=== PATIENT | female | born 1965 | race Caucasian/White ===

== ENCOUNTER 2018-10-16 11:53 | Outpatient (REF) | payer MEDICAID, SELFPAY ==
--- NOTE | 2018-10-16 11:00 | PAPFT_PTH ---
PATIENT: Carri Fermin LOC: [facility] U#:[id number] AGE/SX: 53/F ROOM: RE10/16/[address]: MICHELLE Rivas : 1965 BED: DIS: 10/16/2018 SPEC #: [id number] RECD: 10/16/18 17:56 STATUS: ARNALDO REBhakti #: [id number] YAMILKA: 10/16/18 11:[address]: Hannah Lemus DEPT: [facility] Cytology RECD BY: Ayaka Vital ENTERED: 10/16/18 17:56 SP TYPE: PAPFT OTHR DR: Asa Goldman MD Tissues: 1 - CX/ENDOCX FOR PAP SMEARS Procedures: PAP THIN PREP/UVM Screening HPV DNA PROBE Comments: [id number]
== END 2018-10-16 12:13 ==
LOC: LBN 11:53
PROVIDERS: PCP Family Medicine; Visit Provider Nurse Practitioner Family
DX: Z12.4 Encounter for screening for malignant neoplasm of cervix (principal); Z11.51 Encounter for screening for human papillomavirus (HPV)
CPT/HCPCS: 88142; 87624

== ENCOUNTER 2018-10-17 07:48 | Outpatient (CLI) | payer MEDICAID, SELFPAY ==
--- NOTE | 2018-10-17 09:00 | DI.MAMMO_ITS ---
SYMPTOM/DIAGNOSIS: SCREENING, Z12.31 MAMMOGRAMS: Mammograms were interpreted according to the usual protocol including computer analysis with CAD system, tomosynthesis and C view imaging. Comparison with prior examinations. Breast density B. No suspicious masses or microcalcifications are seen. There is no definite evidence of malignancy. IMPRESSION: Negative mammogram. Routine screening is recommended. Category I. MQSA ASSESSMENT OF FINDINGS: Negative. Category 1. Patient will receive a letter notifying them of these results. BI-RADS category B. There are scattered areas of fibroglandular density.
== END 2018-10-17 08:08 ==
PROVIDERS: PCP Family Medicine; Visit Provider Nurse Practitioner Family
DX: Z12.31 Encounter for screening mammogram for malignant neoplasm of breast (principal)
CPT/HCPCS: 77063; 77067

== ENCOUNTER 2018-12-04 07:00 | Outpatient (CLI) | payer MEDICAID, SELFPAY ==
[2018-12-04 09:40] LABS: HCT 42.3 % (36.0-46.0); HGB 14.3 g/dL (12.0-15.5); Mean Corp. HGB Concentration 33.8 g/dL (32.0-36.0); Mean Corpuscular Hemoglobin 31.2 pg (27.0-33.0); Mean Corpuscular Volume 92.2 fL (80-95); Mean Platelet Volume 8.4 fL (8.0-11.0); Platelet Count 277 x1000/uL (130-400); RBC 4.59 m/cumm (4.00-5.20); RBC Distribution Width 13.4 % (11.7-14.6); White Blood Cell Count 4.54 k/cumm (4.4-10.8)
[2018-12-04 10:30] LABS: BUN 14 mg/dL (7-18); CREATININE 0.76 mg/dL (0.55-1.02); Calcium 9.2 mg/dL (8.5-10.1); Chloride 103 mmol/L (98-107); Cholesterol 328 mg/dL (50-200); Glucose 113 mg/dL (70-100); HDL Cholesterol 71 mg/dL (40-60); LDL CHOLESTEROL 235 mg/dL (<100); Potassium 4.4 mmol/L (3.5-5.1); Sodium 143 mmol/L (136-145); Triglyceride 100 mg/dL (30-150)
== END 2018-12-04 07:20 ==
PROVIDERS: PCP Family Medicine; Visit Provider Family Medicine
DX: Z00.00 Encounter for general adult medical examination without abnormal findings (principal); Z13.220 Encounter for screening for lipoid disorders; Z13.228 Encounter for screening for other metabolic disorders
CPT/HCPCS: 36415; 80048; 80061; 83721; 85027

== ENCOUNTER 2019-04-10 21:20 | Emergency (ER) | payer MEDICAID, SELFPAY ==
[2019-04-10 21:27] VITALS: BP 126/62; PULSE 85; RESP 18; TEMP 37.1; O2SAT 96
--- NOTE | 2019-04-10 22:10 | ED.GENADUL_ITS ---
Discharge Plan Disposition Patient Disposition: HOME Condition: Stable Discharge Details Chief Complaint: Sorethroat Clinical Impression: URI (upper respiratory infection) Primary Care Provider: Asa Goldman ED Provider: Luiz Alvarez Home Meds and New Rx's Prescriptions: New benzonatate 200 mg capsule 200 mg PO TID PRN (Reason: cough) Qty: 30 RF: 0 No Action tramadol 50 mg tablet 50 mg PO Q6H PRN Qty: 60 RF: 4 Flovent HFA 110 mcg/actuation HFA aerosol inhaler 110 mcg Inhalation BID Qty: 3 RF: 4 baclofen 10 mg tablet 10 mg PO TID Qty: 30 RF: 4 cholecalciferol (vitamin D3) 400 unit capsule 400 unit PO DAILY RF: 0 Daily Probiotic 2.5 billion cell capsule PO RF: 0 turmeric 400 mg capsule PO RF: 0 estradiol [Vagifem] 10 mcg tablet 10 mcg VG 2x/wk Qty: 26 RF: 4 metronidazole 0.75 % gel 1 applic TP BID Qty: 45 RF: 2 hydrocodone-acetaminophen 5-325 mg tablet 1 tab PO Q6H PRN MDD 4 tabs Qty: 50 RF: 0 vitamin B complex 1 EACH tablet 1 ea PO DAILY RF: 0 Fish Oil 1 EACH capsule 1 cap PO DAILY RF: 0 Mirena 1 EACH intrauterine device 1 ea Intrauterine DAILY RF: 0 (DME) Aerochamber Plus Flow-Vu 1 EACH spacer 1 ea Miscellaneous q 4 hours prn 30 Days Qty: 1 RF: 1 fluticasone propionate 16 GM spray,suspension 2 spry NS DAILY Qty: 1 RF: 3 citalopram [Celexa] 40 mg tablet 40 mg PO DAILY Qty: 90 RF: 3 levalbuterol tartrate 45 mcg/actuation HFA aerosol inhaler 2 inh IH Q6H PRN (Reason: shortness of breath or wheezing) Qty: 15 RF: 4 albuterol sulfate [ProAir HFA] 90 mcg/actuation HFA aerosol inhaler 2 puff Inhalation Q6H PRN Qty: 3 RF: 4 diphenhydramine HCl 25 MG capsule 1 cap PO PRN PRNRF: 0 Excedrin Migraine 1 EACH tablet 1 ea PO PRN PRNRF: 0 Discharge Instructions Instructions: Upper Respiratory Infection (ED) Additional Instructions: Over the weekend please get plenty of rest, drink plenty fluids, and he may continue to use iski-sym-bjxkrvh cough and cold medication as directed on packaging. Use provided cough medication as needed for increase in cough. Return immediately for any new or significant worsening of symptoms, if you start running a fever, or any further concerns. Otherwise follow-up with your primary care provider next week for reassessment if not improving Referrals: Asa Goldman MD [Primary Care Provider] - (As needed for reassessment) Discharge Data Discharge Date/Time-TO BE ENTERED AT DEPARTURE: 04/10/19 22:31 Medical Decision Making Patient presenting to the emergency department for chief complaint of sore throat. Patient states that she has had symptoms the past 2 weeks she. Her symptoms have been included nasal congestion, earache, sore throat, and some discomfort to her tongue. She states that after couple days of symptoms she saw her primary care provider who thought this was a viral illness and encouraged povc-wke-bbxdqrq medications. She has been intermittently using Claritin-D which is provided some help but in the last day or so she has noticed an increase worsening sore throat. Patient denies any fever chills, does state a mild intermittent cough. Physical exam shows mild posterior pharynx erythema o therwise unremarkable HEENT exam, no lymphadenopathy, no signs of meningitis, clear lung sounds unremarkable exam. 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 Given the patient states worsening symptoms and mouth pain with worsening sore throat but negative strep did discuss with patient use of steroids to help with some of her symptoms. I feel more likely patient is suffering from viral illness and given that she is afebrile and otherwise stable do not feel that she needs antibiotic therapy at this time. We agreed on single dose of Decadron and for her to continue her uvef-zxq-aeeflkr cough and cold medication. Close return precautions were discussed along with follow-up to primary care provider for reassessment if not improving. After discussion of diagnosis and plan of care patient has no further needs, questions, or concerns and states clear understanding to return to the emergency department for any worsening symptoms. HPI General Mode of arrival: ambulatory . Date/Time Provider Initiated Documentation: 04/10/19 21:22 . Limitations to Documentation: no limitations . Information obtained by: patient and RN notes reviewed . History of Present Illness 54 year old F presents to the emergency department with the chief complaint of Sore throat, nasal congestion, earache, described as moderate, with intensity rated at 7. Quality is described as aching, and is localized to the mouth (Sore throat). Patient started experiencing this week(s) (2) and it has been constant. No relieving factors improve symptom(s), No exacerbating factors reported . Patient did receive the following treatments prior to arrival, other (Claritin-D) Related Data Home Medications Medication Instructions Recorded Confirmed Fish Oil 1 cap PO DAILY 10/07/12 03/31/19 vitamin B complex 1 ea PO DAILY 10/07/12 03/31/19 Mirena 1 ea INTRAUTERINE DAILY 10/09/12 03/31/19 Excedrin Migraine 1 ea PO PRN PRN 03/04/16 03/31/19 diphenhydramine HCl 1 cap PO PRN PRN 03/04/16 03/31/19 inhalational spacing device #1 u 08/06/17 03/31/19 [Aerochamber Plus Flow-Vu] fluticasone propionate 2 spry NS DAILY #1 spray 10/31/17 03/31/19 tramadol 50 mg tablet 50 mg PO Q6H PRN #60 tab 05/29/18 03/31/19 citalopram 40 mg tablet 40 mg PO DAILY #90 tab-cap 06/12/18 03/31/19 fluticasone propionate 110 110 mcg INHALATION BID #3 puff 09/04/18 03/31/19 mcg/actuation HFA aerosol inhaler Lacto.acidophilus-Bif.animalis 2.5 cap PO cap 10/16/18 03/31/19 billion cell capsule cholecalciferol (vitamin D3) 400 400 unit PO DAILY 10/16/18 03/31/19 unit capsule estradiol 10 mcg vaginal tablet 10 mcg VG 2x/wk #26 each 10/16/18 03/31/19 turmeric 400 mg capsule mg PO cap 10/16/18 03/31/19 baclofen 10 mg tablet 10 mg PO TID #30 tab-cap 11/06/18 03/31/19 levalbuterol tartrate 45 2 inh IH Q6H PRN #15 gm 12/17/18 03/31/19 mcg/actuation aerosol inhaler albuterol sulfate 90 mcg/actuation 2 puff INHALATION Q6H PRN #3 03/11/19 03/31/19 aerosol inhaler inhaler hydrocodone 5 mg-acetaminophen 325 1 tab PO Q6H PRN #50 tab-cap MDD 4 03/31/19 03/31/19 mg tablet tabs metronidazole 0.75 % topical gel 1 applic TP BID #45 gm 03/31/19 03/31/19 benzonatate 200 mg PO TID PRN #30 cap 04/10/19 Previous Rx's Medication Instructions Recorded inhalational spacing device #1 u 08/06/17 [Aerochamber Plus Flow-Vu] fluticasone propionate 2 spry NS DAILY #1 spray 10/31/17 tramadol 50 mg tablet 50 mg PO Q6H PRN #60 tab 05/29/18 citalopram 40 mg tablet 40 mg PO DAILY #90 tab-cap 06/12/18 fluticasone propionate 110 110 mcg INHALATION BID #3 puff 09/04/18 mcg/actuation HFA aerosol inhaler estradiol 10 mcg vaginal tablet 10 mcg VG 2x/wk #26 each 10/16/18 baclofen 10 mg tablet 10 mg PO TID #30 tab-cap 11/06/18 levalbuterol tartrate 45 2 inh IH Q6H PRN #15 gm 12/17/18 mcg/actuation aerosol inhaler albuterol sulfate 90 mcg/actuation 2 puff INHALATION Q6H PRN #3 03/11/19 aerosol inhaler inhaler hydrocodone 5 mg-acetaminophen 325 1 tab PO Q6H PRN #50 tab-cap MDD 4 03/31/19 mg tablet tabs metronidazole 0.75 % topical gel 1 applic TP BID #45 gm 03/31/19 benzonatate 200 mg PO TID PRN #30 cap 04/10/19 Allergies Allergy/AdvReac Type Severity Reaction Status Date / Time amoxicillin Allergy HIVES Verified 04/10/19 21:31 clavulanic acid Allergy HIVES Verified 04/10/19 21:31 levofloxacin Allergy RASH Verified 04/10/19 21:31 Penicillins Allergy HIVES Verified 04/10/19 21:31 imipramine AdvReac Intermediate Palpitations, Verified 04/10/19 21:31 slurred speech ondansetron AdvReac constipation. Verified 04/10/19 21:31 Hallucinations in combination with meclizine VENLAFAXINE AdvReac Unknown Uncoded 04/10/19 21:31 General Stated Complaint: Sorethroat HAMILTON: 4 Review of Systems Constitutional Constitutional: Denies body ache(s), Reports chills, Denies fever(s), Denies headache(s) and Reports malaise ENT Ears, Nose, Mouth, and Throat: Reports as per HPI, Denies ear discharge, Reports otalgia, Denies headache(s), Reports mouth pain, Reports nasal congestion, Denies neck pain, Reports post nasal drip, Reports sore throat and Denies throat swelling Cardiovascular Cardiovascular: Denies chest pain and Denies dyspnea Respiratory Respiratory: Reports cough and Denies dyspnea Musculoskeletal Musculoskeletal: Denies joint swelling and Denies neck pain Neurologic Neurologic: Denies headache(s) Allergic/Immunologic Allergic/Immunologic: Denies throat swelling [facility] Medical History Anxiety Asthma Degeneration of intervertebral disc (Chronic) Depressive disorder (Chronic) Diverticulosis of colon without diverticulitis (Chronic 06/27/01) sigmoid Fibromyalgia Hyperlipidemia (Chronic) Overactive bladder Pulmonary tuberculosis Sciatic pain Surgical History section X 3 Colonoscopy - MAC (~2001) Colonoscopy - MAC (11/23/16) History of section (Inactive) Family History Mother Depression Hypothyroidism Asthma Diabetes Father , [place] at age 88. Essential hypertension Heart disease Myocardial infarction Pulmonary emphysema Sister Essential hypertension Depression Brother Alcohol abuse Maternal Grandmother , 89 Diabetes Paternal Grandmother , 107 No problems noted. Brother No problems noted. Brother Alcohol abuse Asthma Myocardial infarction Stroke Brother Alcohol abuse Depression Asthma Heart disease Brother No problems noted. Brother Sleep apnea Diabetes Essential hypertension Depression Heart disease Maternal Grandfather , 61 Pulmonary emphysema Asthma Paternal Grandfather , 83 Myocardial infarction Hypertension Son No problems noted. 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 Pets and animals: Yes Pets and animals: dog(s) and guinea pig(s) Sexually active: Yes Do you think of yourself as: straight/heterosexual Current gender identity: female What is your relationship status?: How often do you talk on the phone with friends or family?: three or more times per week How often do you get together with friends or relatives?: three or more times per week How often do you attend congregational or lutheran services?: 4 or more times per year Do you belong to any clubs or organized social groups?: yes Panel score (0-1 are the most socially isolated patients): 4 Duration: 60-90 minutes/day Frequency: 5-6 times per week Gayatri/Jainism: Jehovah'S Witness Special gayatri needs: No Seatbelt use: always Drive intox or ride w/intox diesel pile driver operator: No Do you feel safe in your relationship?: Yes History History 3 Para 3 Hx # Term Pregnancies Multiple births Hx # Pregnancies Ectopic pregnancies AB induced Hx Number of Living Children AB spontaneous Exam Const General: cooperative, comfortable and no acute distress Orientation: alert and awake HENMT Head: normal to inspection, normocephalic and atraumatic Ears: hearing grossly normal bilaterally and TM's normal bilaterally General nose exam: external nose normal Face and sinus: no erythema and sinus tenderness ethmoid and maxillary Mouth: oral mucosae normal, no drooling, no muffled voice and no trismus Throat: tonsils normal, uvula midline and posterior oropharynx abnormal erythema; no edema and no exudates Neck Neck: normal visual inspection, full ROM, no lymphadenopathy, no meningeal signs, trachea midline and supple Resp Effort & Inspection: normal respiratory effort and able to speak in complete sentences Auscultation: clear to auscultation bilaterally Cardio Rate: regular rate Rhythm: regular rhythm Heart Sounds: S1 normal, S2 normal, normal S1 and S2, no click, no gallops, no murmurs and no rubs Skin General skin exam: no rashes or lesions noted and dry skin (warm) Neuro General: alert, awake, oriented x3, gait normal and moves all extremities Cognition: normal cognition Speech: speech normal Course Vital Signs Vital signs: Vital Signs Temperature 37.1 C 04/10/19 21:27 Pulse 85 04/10/19 21:27 Respiratory Rate 18 04/10/19 21:27 Blood Pressure 126/62 04/10/19 21:27 Pulse Oximetry 96 04/10/19 21:27 Temperature 37.1 C 04/10/19 21:27 Temperature Source Temporal Artery Scan 04/10/19 21:27 Pulse 85 04/10/19 21:27 Respiratory Rate 18 04/10/19 21:27 Respiratory Effort 04/10/19 21:32 Blood Pressure 126/62 04/10/19 21:27 Blood Pressure Position Sitting 04/10/19 21:27 Pulse Oximetry 96 04/10/19 21:27 Oxygen Delivery Method Room Air 04/10/19 21:27 Oxygen Flow Rate 0 04/10/19 21:27 Lab/Test Results Lab/Test Results: 04/10/19 21:35 Pharynx Streptococcus Screen (HORACIO) - Pending POC Strep Test-KRISHNA(Rapid) Start: 04/10/19 21:38 Freq: .Rapid Strep Test Status: Active Protocol: Document 04/10/19 21:44 SN (Rec: 04/10/19 21:44 SN ER15) Strep test-KRISHNA(Rapid)-POC POC-Strep test-KRISHNA (Rapid) Negative POC-Strep test-KRISHNA (Rapid) Negative
[2019-04-10] MEDS: Dexamethasone 10 MG/ML VIAL PO (22:25)
== END 2019-04-10 22:31 | disposition home or self-care (01) ==
PROVIDERS: Emergency Provider Nurse Practitioner Family; PCP Family Medicine
DX: J06.9 Acute upper respiratory infection, unspecified (principal)
CPT/HCPCS: 87880; 99283; 87081; J1100

== ENCOUNTER 2019-06-16 09:48 | Emergency (ER) | payer MEDICAID, SELFPAY ==
[2019-06-16 09:50] VITALS: BP 142/82; PULSE 69; RESP 18; TEMP 36.6; O2SAT 98
--- NOTE | 2019-06-16 09:51 | ED.GENADUL_ITS ---
Discharge Plan Disposition Patient Disposition: HOME Condition: Good Discharge Details Chief Complaint: EyeProblem Clinical Impression: Abrasion of cornea, left Primary Care Provider: Aas Goldman ED Provider: Fabien Hammer Home Meds and New Rx's Prescriptions: No Action tramadol 50 mg tablet 50 mg PO Q6H PRN Qty: 60 RF: 4 Flovent HFA 110 mcg/actuation HFA aerosol inhaler 110 mcg Inhalation BID Qty: 3 RF: 4 cholecalciferol (vitamin D3) 400 unit capsule 400 unit PO DAILY RF: 0 Daily Probiotic 2.5 billion cell capsule PO RF: 0 turmeric 400 mg capsule PO RF: 0 estradiol [Vagifem] 10 mcg tablet 10 mcg VG 2x/wk Qty: 26 RF: 4 metronidazole 0.75 % gel 1 applic TP BID Qty: 45 RF: 2 hydrocodone-acetaminophen 5-325 mg tablet 1 tab PO Q6H PRN MDD 4 tabs Qty: 50 RF: 0 vitamin B complex 1 EACH tablet 1 ea PO DAILY RF: 0 Fish Oil 1 EACH capsule 1 cap PO DAILY RF: 0 Mirena 1 EACH intrauterine device 1 ea Intrauterine DAILY RF: 0 (DME) Aerochamber Plus Flow-Vu 1 EACH spacer 1 ea Miscellaneous q 4 hours prn 30 Days Qty: 1 RF: 1 fluticasone propionate 16 GM spray,suspension 2 spry NS DAILY Qty: 1 RF: 3 citalopram [Celexa] 40 mg tablet 40 mg PO DAILY Qty: 90 RF: 3 levalbuterol tartrate 45 mcg/actuation HFA aerosol inhaler 2 inh IH Q6H PRN (Reason: shortness of breath or wheezing) Qty: 15 RF: 4 albuterol sulfate [ProAir HFA] 90 mcg/actuation HFA aerosol inhaler 2 puff Inhalation Q6H PRN Qty: 3 RF: 4 baclofen 10 mg tablet 10 mg PO TID Qty: 90 RF: 4 diphenhydramine HCl 25 MG capsule 1 cap PO PRN PRNRF: 0 Excedrin Migraine 1 EACH tablet 1 ea PO PRN PRNRF: 0 benzonatate 200 mg capsule 200 mg PO TID PRN (Reason: cough) Qty: 30 RF: 0 Discharge Instructions Instructions: Corneal Abrasion (ED) Additional Instructions: At this time you have a small abrasion on your left cornea. Please use the erythromycin ointment 3 times daily as directed. Please follow-up closely with Dr. Mahmood. If you notice any worsening of your symptoms, or any new symptoms such as pain with movement of your eye, vision changes, vomiting, diarrhea, fever, chills, shortness of breath, chest pain, numbness, weakness, or fainting , please return immediately to the emergency department for reevaluation. Please follow up with your primary care provider as soon as possible for reassessment and reevaluation. As always, it was a pleasure participating in your medical care today. [address] [place] [address] Referrals: [facility] [OTHER] - Medical Decision Making This is a pleasant 54-year-old female who presents for irritation in her left eye. She is not a contact lens wear. No concerning historical red flags of welding, metal grinding, or rest. Exam demonstrates mild corneal abrasion left lateral aspect of the eye. No other significant abnormalities. Normal visual acuities deficits. No other concerning red flags. No rest rings of foreign bodies. At this time I feel that the patient would benefit from erythromycin ointment for soothing nature. Discussed the importance of close follow-up with ophthalmology. I have extensively reviewed the treatment plan and discharge instructions with the patient and their family. I have addressed all patient concerns at this time. The patient and family was made aware of what symptoms to monitor for that would warrant a return to the emergency department. Discussed the plan with the patient and family, they demonstrate verbal understanding and agreement with our assessment and plan at this time. HPI General Date/Time Provider Initiated Documentation: 06/16/19 09:50 . HPI Narrative: This is a 54-year-old female with no significant past medical history except for reactive airway disease, who presents today for evaluation of irritation and pain in the left eye. Patient is not a contact lens wearer. She states that last night while playing [employer] she felt irritation in her left eye, which she has been rubbing scraping vigorously for the last 12 hours. She still feels like there is irritation and grittiness in the left lateral aspect of the eye. She denies any vision changes. She denies any recent welding, significant outdoor activity in the sun, or other complaints or abnormalities. Related Data Home Medications Medication Instructions Recorded Confirmed Fish Oil 1 cap PO DAILY 10/07/12 04/13/19 vitamin B complex 1 ea PO DAILY 10/07/12 04/13/19 Mirena 1 ea INTRAUTERINE DAILY 10/09/12 04/13/19 Excedrin Migraine 1 ea PO PRN PRN 03/04/16 04/13/19 diphenhydramine HCl 1 cap PO PRN PRN 03/04/16 04/13/19 inhalational spacing device #1 u 08/06/17 04/13/19 [Aerochamber Plus Flow-Vu] fluticasone propionate 2 spry NS DAILY #1 spray 10/31/17 04/13/19 tramadol 50 mg tablet 50 mg PO Q6H PRN #60 tab 05/29/18 04/13/19 citalopram 40 mg tablet 40 mg PO DAILY #90 tab-cap 06/12/18 04/13/19 fluticasone propionate 110 110 mcg INHALATION BID #3 puff 09/04/18 04/13/19 mcg/actuation HFA aerosol inhaler Lacto.acidophilus-Bif.animalis 2.5 cap PO cap 10/16/18 04/13/19 billion cell capsule cholecalciferol (vitamin D3) 400 400 unit PO DAILY 10/16/18 04/13/19 unit capsule estradiol 10 mcg vaginal tablet 10 mcg VG 2x/wk #26 each 10/16/18 04/13/19 turmeric 400 mg capsule mg PO cap 10/16/18 04/13/19 levalbuterol tartrate 45 2 inh IH Q6H PRN #15 gm 12/17/18 04/13/19 mcg/actuation aerosol inhaler hydrocodone 5 mg-acetaminophen 325 1 tab PO Q6H PRN #50 tab-cap MDD 4 03/31/19 04/13/19 mg tablet tabs metronidazole 0.75 % topical gel 1 applic TP BID #45 gm 03/31/19 04/13/19 benzonatate 200 mg PO TID PRN #30 cap 04/10/19 04/13/19 albuterol sulfate 90 mcg/actuation 2 puff INHALATION Q6H PRN #3 04/27/19 aerosol inhaler inhaler baclofen 10 mg tablet 10 mg PO TID #90 tab-cap 06/02/19 Previous Rx's Medication Instructions Recorded inhalational spacing device #1 u 08/06/17 [Aerochamber Plus Flow-Vu] fluticasone propionate 2 spry NS DAILY #1 spray 10/31/17 tramadol 50 mg tablet 50 mg PO Q6H PRN #60 tab 05/29/18 citalopram 40 mg tablet 40 mg PO DAILY #90 tab-cap 06/12/18 fluticasone propionate 110 110 mcg INHALATION BID #3 puff 09/04/18 mcg/actuation HFA aerosol inhaler estradiol 10 mcg vaginal tablet 10 mcg VG 2x/wk #26 each 10/16/18 levalbuterol tartrate 45 2 inh IH Q6H PRN #15 gm 12/17/18 mcg/actuation aerosol inhaler hydrocodone 5 mg-acetaminophen 325 1 tab PO Q6H PRN #50 tab-cap MDD 4 03/31/19 mg tablet tabs metronidazole 0.75 % topical gel 1 applic TP BID #45 gm 03/31/19 benzonatate 200 mg PO TID PRN #30 cap 04/10/19 albuterol sulfate 90 mcg/actuation 2 puff INHALATION Q6H PRN #3 04/27/19 aerosol inhaler inhaler baclofen 10 mg tablet 10 mg PO TID #90 tab-cap 06/02/19 Allergies Allergy/AdvReac Type Severity Reaction Status Date / Time amoxicillin Allergy HIVES Verified 06/16/19 09:52 clavulanic acid Allergy HIVES Verified 06/16/19 09:52 levofloxacin Allergy RASH Verified 06/16/19 09:52 Penicillins Allergy HIVES Verified 06/16/19 09:52 imipramine AdvReac Intermediate Palpitations, Verified 06/16/19 09:52 slurred speech ondansetron AdvReac constipation. Verified 06/16/19 09:52 Hallucinations in combination with meclizine VENLAFAXINE AdvReac Unknown Uncoded 06/16/19 09:52 General HAMILTON: 4 Review of Systems All systems reviewed & are unremarkable except as noted in HPI and below PFSH Social History Smoking/Tobacco Use Status: Former Tobacco Use Quit Date: 01/01/89 Second Hand Exposure: Yes Alcohol Intake: current Alcohol Intake frequency: a few times a month Alcohol type: beer and wine Drug use: Never Substance use type: prescription drug Household members: spouse Housing: apartment Do you need help understanding health information?: Rarely 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 occupation: [employer]TER [employer] Pets and animals: Yes Pets and animals: dog(s) and guinea pig(s) Sexually active: Yes Do you think of yourself as: straight/heterosexual Current gender identity: female What is your relationship status?: How often do you talk on the phone with friends or family?: three or more times per week How often do you get together with friends or relatives?: three or more times per week How often do you attend mandaeism or voodoo services?: 4 or more times per year Do you belong to any clubs or organized social groups?: yes Panel score (0-1 are the most socially isolated patients): 4 Duration: 60-90 minutes/day Frequency: 5-6 times per week Gayatri/Scientology: Hoahaoism Special gayatri needs: No Seatbelt use: always 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 Left eye: Eye: EOMI, PERRL, Peripheral vision intact. No nystagmus. Fundoscopic exam shows normal optic discs and normal vasculature. No clinical signs of septal/orbital cellulitis, no redness around the eye, no proptosis. No hyphema, no signs of trauma around the eye, no periorbital emphysema. No sluggishness of the pupil. No ophthalmoplegia. No afferent pupillary defect. Fluorescein exam is positive for corneal abrasion in the left lateral aspect. Eversion of the lids demonstrates no evidence of retained eyelash or foreign body. No other abnorma lities, negative [place] sign. Visual acuity as documented in chart, and it is equivalent in each eye. 3.ENT: Atraumatic external nose and ears. Moist MM. Neck: Symmetric, trachea midline, No thyromegaly. 4.CVS: +S1/S2, No murmurs or gallops. Peripheral pulses 2+ and equal in all extremities. Brisk capillary refill in all extremities. 5.RESP: Unlabored respiratory effort. Clear to auscultation bilaterally. No wheezes rales or rhonchi 6.GI: Soft, Nontender/Nondistended, No hepatosplenomegaly. No guarding or rebound. 7.MSK: Normocephalic/Atraumatic, Extremities w/o deformity or ttp No cyanosis or clubbing, Normal movement of all extremities 8.Skin: Warm, Dry. No rashes or lesions. 9.Neuro: community board member II-XII grossly intact. Sensation grossly intact, no focal neurologic deficits. 10.Psych: (AAO) x3. Appropriate mood and affect
[2019-06-16] MEDS: Tetracaine 0.5% 4 ML BTL (09:58)
[2019-06-16] MEDS: Fluorescein STRIPS 100/BOX 1 MG (09:58)
[2019-06-16] MEDS: Erythromycin Ophth Oint 3.5 GM TUBE OS (10:14)
[2019-06-16 10:15] VITALS: BP 142/82; PULSE 69; RESP 18; TEMP 36.6; O2SAT 98
== END 2019-06-16 10:14 | disposition home or self-care (01) ==
PROVIDERS: Emergency Provider Student in an Organized Health Care Education/Training Program; PCP Family Medicine
DX: S05.02XA Injury of conjunctiva and corneal abrasion without foreign body, left eye, initial encounter (principal); X58.XXXA Exposure to other specified factors, initial encounter
CPT/HCPCS: 99283

== ENCOUNTER 2019-10-27 11:11 | Emergency (ER) | payer MEDICAID, SELFPAY ==
[2019-10-27] VITALS (16 sets, daily range): BP systolic 113–131; BP diastolic 64–80; PULSE 67–84; RESP 18; TEMP 36.1; O2SAT 95–100
--- NOTE | 2019-10-27 11:38 | DI.MRI_ITS ---
EXAM: MR LUMBAR SPINE WO/W CLINICAL HISTORY: low backpain and spasm, incontinence of urine. TECHNIQUE: Multiplanar multisequence MRI was performed. Pre and post gadolinium T1 axial and sagitt al sequences were performed in addition to the routine sequences. COMPARISON: MRI - LUMBAR SPINE WO CONTRAST from 03/08/2014 FINDINGS: A Hemangioma is again noted in the L3 vertebral body. No suspicious bony lesions or abnormal areas of enhancement are seen. There is no evidence of epidural abscess. There is is no evidence of osteo myelitis or discitis. There is no evidence of a mass conus medullaris appears normal. There are stable degenerative disc changes L2-3, with left-sided disc bulging. There is minimal disc bulging at L3-4 and L4-5. Disc osteophytes are seen at L5-S1, similar to the previous exam. There is are facet degenerative changes which contribute to neural foraminal narrowing at L3-4 through L5 S 1. Is no significant central canal stenosis at any level. No disc herniation is seen. IMPRESSION: Degenerative disc changes and facet degenerative changes causing bilateral neural foraminal narrowin g. No acute disc herniation. No evidence of abnormal enhancement or mass. DATA REPOSITORY:
[2019-10-27] MEDS: Lactated Ringers 500 ML IV (11:56)
[2019-10-27] MEDS: Ketorolac 30 MG/ML VIAL IVP (12:01)
[2019-10-27] MEDS: Metoclopramide 10 MG TAB PO (12:01)
--- NOTE | 2019-10-27 12:11 | NUR.NOTE ---
Nursing Note: Pt to MRI per cart
[2019-10-27 12:19] LABS: ALT 37 U/L (14-59); AST 20 U/L (15-37); Albumin 3.7 g/dL (3.4-5.0); Alkaline Phosphatase 65 U/L (46-116); BUN 13 mg/dL (7-18); Bilirubin, Total 0.3 mg/dL (0.2-1.0); CREATININE 0.75 mg/dL (0.55-1.02); Calcium 9.5 mg/dL (8.5-10.1); Chloride 106 mmol/L (98-107); Glucose 117 mg/dL (74-106); Sodium 144 mmol/L (136-145); Total Protein 7.4 g/dL (6.4-8.2)
[2019-10-27 12:26] LABS: Abs Immature Grans 0.01 k/cumm (0.0-0.09); Absolute Basophil Count 0.01 k/cumm (0.0-0.2); Absolute Eosinophil Count 0.09 k/cumm (0.0-0.7); Absolute Lymphocyte Count 1.77 k/cumm (1.2-3.4); Absolute Monocyte Count 0.23 k/cumm (0.11-0.7); Absolute Neutrophil Count 2.65 k/cumm (1.2-6.7); Basophils % 0.2; Eosinophils % 1.9; HCT 44.1 % (36.0-46.0); Immature Grans % 0.2 %; Lymphocytes % 37.2; Mean Corpuscular Hemoglobin 31.1 pg (27.0-33.0); Mean Corpuscular Volume 91.3 fL (80-95); Mean Platelet Volume 8.4 fL (8.0-11.0); Monocytes % 4.8; Neutrophils % 55.7; Platelet Count 313 x1000/uL (130-400); RBC 4.83 m/cumm (4.00-5.20); White Blood Cell Count 4.76 k/cumm (4.4-10.8)
[2019-10-27] MEDS: Normal Saline Flush 10 ML SYR IVP (12:34)
[2019-10-27] MEDS: Gadoterate meglumine 20 ML VIAL 18 ML IVP (12:35)
[2019-10-27] MEDS: HYDROmorphone 2 MG/ML VIAL 1 MG IVP (13:04)
[2019-10-27] MEDS: diazePAM 10 MG/2 ML SYR 5 MG IVP (13:08)
--- NOTE | 2019-10-27 13:15 | NUR.NOTE ---
Nursing Note: AFter pt arrived back from MRI pt received pain mediacation which dropped her SATs to 85, pt being encouraged to take deep breaths, placed on 2 liters via nasal cannula., now sat at 95%.
--- NOTE | 2019-10-27 14:36 | W.ED.GENAD ---
Discharge Plan Disposition Patient Disposition: HOME Condition: Improving Discharge Details Chief Complaint: Nk/Back Pain Clinical Impression: Low back pain Primary Care Provider: Asa Goldman ED Provider: Denver Rodriguez Home Meds and New Rx's Prescriptions: New diazepam [Valium] 5 mg tablet 5 mg PO BID PRN (Reason: spasms) Qty: 14 RF: 0 ibuprofen 600 mg tablet 600 mg PO Q8H PRNQty: 30 RF: 0 Continued Flovent HFA 110 mcg/actuation HFA aerosol inhaler 110 mcg Inhalation BID Qty: 3 RF: 4 hydrocodone-acetaminophen 5-325 mg tablet 1 tab PO Q6H PRN MDD 4 tabs Qty: 50 RF: 0 cholecalciferol (vitamin D3) 400 unit capsule 400 unit PO DAILY RF: 0 Daily Probiotic 2.5 billion cell capsule PO RF: 0 metronidazole 0.75 % gel 1 applic TP BID Qty: 45 RF: 2 fluticasone propionate 50 mcg/actuation spray,suspension 2 spray NS DAILY PRNRF: 0 polyethylene glycol 3350 17 gram/dose powder 17 gm PO DAILY PRNRF: 0 gabapentin 100 mg capsule 300 mg PO TID Qty: 120 RF: 1 vitamin B complex 1 EACH tablet 1 ea PO DAILY RF: 0 Mirena 1 EACH intrauterine device 1 ea Intrauterine DAILY RF: 0 (DME) Aerochamber Plus Flow-Vu 1 EACH spacer 1 ea Miscellaneous q 4 hours prn 30 Days Qty: 1 RF: 1 levalbuterol tartrate 45 mcg/actuation HFA aerosol inhaler 2 inh IH Q6H PRN (Reason: shortness of breath or wheezing) Qty: 15 RF: 4 citalopram [Celexa] 40 mg tablet 40 mg PO DAILY Qty: 90 RF: 3 estradiol [Vagifem] 10 mcg tablet 10 mcg VG 2x/wk Qty: 26 RF: 0 albuterol sulfate [ProAir HFA] 90 mcg/actuation HFA aerosol inhaler 2 puff Inhalation Q6H PRN Qty: 3 RF: 4 diphenhydramine HCl 25 MG capsule 1 cap PO PRN PRNRF: 0 Discontinued baclofen 10 mg tablet 10 mg PO TID Qty: 90 RF: 4 Excedrin Migraine 1 EACH tablet 1 ea PO PRN PRNRF: 0 Discharge Instructions Instructions: Muscle Spasm (ED) Additional Instructions: Please do not take Vicodin and Valium at the same time. Be sure to space these medications out by hours. This combination may make you sleepy. Please do not operate any heavy machinery or drive motor vehicle while taking these medications. Please contact your primary care physician to arrange follow-up. Return to the ER for any worsening or new concerning symptoms. Referrals: Asa Goldman MD [Primary Care Provider] - Medical Decision Making 54-year-old female with history of chronic low back pain and fibromyalgia, here with worsening bilateral low back pain and spasm for the past 8 days. She has had some urinary incontinence which she attributes to baclofen. No saddle anesthesia on exam. Neurologically intact. Consider cauda equina given persistence of pain and urinary incontinence. MRI of the lumbar spine was reviewed and interpreted by radiology: FINDINGS: A Hemangioma is again noted in the L3 vertebral body. No suspicious bony lesions or abnormal areas of enhancement are seen. There is no evidence of epidural abscess. There is is no evidence of osteomyelitis or discitis. There is no evidence of a mass conus medullaris appears normal. There are stable degenerative disc changes L2-3, with left-sided disc bulging. There is minimal disc bulging at L3-4 and L4-5. Disc osteophytes are seen at L5-S1, similar to the previous exam. There is are facet degenerative changes which contribute to neural foraminal narrowing at L3-4 through L5 S1. Is no significant central canal stenosis at any level. No disc herniation is seen. IMPRESSION: Degenerative disc changes and facet degenerative changes causing bilateral neural foraminal narrowing. No acute disc herniation. No evidence of abnormal enhancement or mass. I considered electrolyte abnormality as cause of spasm. Labs reviewed and no electrolyte abnormalities. Patient was reassessed and noted to have significant worsening of spasm after MRI. She was given a dose of Dilaudid 1 mg IV and Valium 5 mg IV. On reassessment pain and spasm were much improved. She was able to ambulate and bend without difficulty. I reviewed [place] prescription monitoring databank and no concerns noted. I called and spoke with Dr. Goldman and discussed ED presentation and course. He agrees with discharge and outpatient follow-up. He recommends stopping baclofen and starting diazepam and providing 1 week prescription for diazepam. Risks of opioid/benzodiazepine use were discussed with the patient. Patient provided informed consent to treat. Usual customary discharge instructions were provided. HPI General Mode of arrival: ambulatory. Date/Time Provider Initiated Documentation: 10/27/19 11:38. Limitations to Documentation: no limitations. Information obtained by: patient. HPI Narrative: 54-year-old female presents with chief complaint of low back spasm. Patient notes for the past 8 days she has had persistent and progressively worse intermittent spasms of her low back. Pain and spasm is bilateral lower back. No recent trauma. Spasms are now severe. She has been taking increasing dosing of gabapentin, Vicodin and also baclofen for pain as prescribed by her primary care physician. Last night she took ibuprofen and also some CBD oil and she thinks that her pain is much improved this morning. She does note some nausea that she attributes to the baclofen. She also states she is had some intermittent urinary incontinence and constipation. Related Data Home Medications Medication Instructions Recorded Confirmed vitamin B complex 1 ea PO DAILY 10/07/12 10/27/19 Mirena 1 ea INTRAUTERINE DAILY 10/09/12 10/27/19 diphenhydramine HCl 1 cap PO PRN PRN 03/04/16 10/27/19 Aerochamber Plus Flow-Vu #1 u 08/06/17 10/09/19 fluticasone propionate 110 110 mcg INHALATION BID #3 puff 09/04/18 10/27/19 mcg/actuation HFA aerosol inhaler Lacto.acidophilus-Bif.animalis 2.5 cap PO cap 10/16/18 10/09/19 billion cell capsule cholecalciferol (vitamin D3) 10 400 unit PO DAILY 10/16/18 10/27/19 mcg (400 unit) capsule levalbuterol tartrate 45 2 inh IH Q6H PRN #15 gm 12/17/18 10/27/19 mcg/actuation aerosol inhaler metronidazole 0.75 % topical gel 1 applic TP BID #45 gm 03/31/19 10/27/19 citalopram 40 mg tablet 40 mg PO DAILY #90 tab-cap 06/19/19 10/27/19 estradiol 10 mcg vaginal tablet 10 mcg VG 2x/wk #26 each 08/13/19 10/27/19 fluticasone propionate 50 2 spray NS DAILY PRN spray 09/07/19 10/27/19 mcg/actuation nasal spray,suspension polyethylene glycol 3350 17 17 gm PO DAILY PRN gm 09/07/19 10/27/19 gram/dose oral powder hydrocodone 5 mg-acetaminophen 325 1 tab PO Q6H PRN #50 tab-cap MDD 4 09/10/19 10/27/19 mg tablet tabs gabapentin 100 mg capsule 300 mg PO TID #120 cap 10/22/19 10/27/19 albuterol sulfate 90 mcg/actuation 2 puff INHALATION Q6H PRN #3 10/23/19 10/27/19 aerosol inhaler inhaler diazepam [Valium] 5 mg PO BID PRN #14 tab 10/27/19 ibuprofen 600 mg PO Q8H PRN #30 tab 10/27/19 Previous Rx's Medication Instructions Recorded Aerochamber Plus Flow-Vu #1 u 08/06/17 fluticasone propionate 110 110 mcg INHALATION BID #3 puff 09/04/18 mcg/actuation HFA aerosol inhaler levalbuterol tartrate 45 2 inh IH Q6H PRN #15 gm 12/17/18 mcg/actuation aerosol inhaler metronidazole 0.75 % topical gel 1 applic TP BID #45 gm 03/31/19 citalopram 40 mg tablet 40 mg PO DAILY #90 tab-cap 06/19/19 estradiol 10 mcg vaginal tablet 10 mcg VG 2x/wk #26 each 08/13/19 hydrocodone 5 mg-acetaminophen 325 1 tab PO Q6H PRN #50 tab-cap MDD 4 09/10/19 mg tablet tabs gabapentin 100 mg capsule 300 mg PO TID #120 cap 10/22/19 albuterol sulfate 90 mcg/actuation 2 puff INHALATION Q6H PRN #3 10/23/19 aerosol inhaler inhaler diazepam [Valium] 5 mg PO BID PRN #14 tab 10/27/19 ibuprofen 600 mg PO Q8H PRN #30 tab 10/27/19 Allergies Allergy/AdvReac Type Severity Reaction Status Date / Time amoxicillin Allergy HIVES Verified 10/27/19 11:23 clavulanic acid Allergy HIVES Verified 10/27/19 11:23 levofloxacin Allergy RASH Verified 10/27/19 11:23 Penicillins Allergy HIVES Verified 10/27/19 11:23 imipramine AdvReac Intermediate Palpitations, Verified 10/27/19 11:23 slurred speech ondansetron AdvReac constipation. Verified 10/27/19 11:23 Hallucinations in combination with meclizine VENLAFAXINE AdvReac Unknown Uncoded 10/27/19 11:23 General Stated Complaint: Nk/Back Pain HAMILTON: 3 Review of Systems All systems reviewed & are unremarkable except as noted in HPI and below Constitutional Constitutional: Denies fever(s) and Denies weakness Gastrointestinal Gastrointestinal: Reports as per HPI and Denies abdominal pain Musculoskeletal Musculoskeletal: Reports as per HPI, Denies numbness and Denies tingling Neurologic Neurologic: Denies numbness, Denies tingling and Denies weakness Comments: Pain does seem to radiate into her legs laterally [facility] Medical History Alcohol abuse (Inactive) Anxiety Asthma Degeneration of intervertebral disc (Chronic) Depressive disorder (Chronic) Diverticulosis of colon without diverticulitis (Chronic 06/27/01) sigmoid Fibromyalgia Hyperlipidemia (Chronic) Overactive bladder Pulmonary tuberculosis Sciatic pain Surgical History section X 3 Colonoscopy - MAC (~2001) Colonoscopy - MAC (11/23/16) History of section (Inactive) Family History Mother Depression Hypothyroidism Asthma Diabetes Father , [place] at age 88. Essential hypertension Heart disease Myocardial infarction Pulmonary emphysema Sister Essential hypertension Depression Brother Alcohol abuse Maternal Grandmother , 89 Diabetes Paternal Grandmother , 107 No problems noted. Brother No problems noted. Brother Alcohol abuse Asthma Myocardial infarction Stroke Brother Alcohol abuse Depression Asthma Heart disease Brother No problems noted. Brother Sleep apnea Diabetes Essential hypertension Depression Heart disease Maternal Grandfather , 61 Pulmonary emphysema Asthma Paternal Grandfather , 83 Myocardial infarction Hypertension Son No problems noted. Daughter Depression Asthma Daughter Depression Social History Smoking/Tobacco Use Status: Former Tobacco Use Quit Date: 07/29/88 Second Hand Exposure: Yes Alcohol Intake: current Alcohol Intake frequency: a few times a month Alcohol type: beer and wine Drug use: Never Substance use type: prescription drug Details: CBD oil at 0400--new to her-first dose Household members: spouse Housing: apartment Do you need help understanding health information?: Rarely current occupation: [employer] Pets and animals: Yes Pets and animals: dog(s) and guinea pig(s) Sexually active: Yes Do you think of yourself as: straight/heterosexual Current gender identity: female What is your relationship status?: How often do you talk on the phone with friends or family?: three or more times per week How often do you get together with friends or relatives?: three or more times per week How often do you attend spiritism or sikh services?: 4 or more times per year Do you belong to any clubs or organized social groups?: yes Panel score (0-1 are the most socially isolated patients): 4 Duration: 60-90 minutes/day Frequency: 5-6 times per week Gayatri/Mosque: Spiritism Special gayatri needs: No Seatbelt use: always Drive intox or ride w/intox driver's license reviewing officer: No Do you feel safe at home: Yes Do you feel safe in your relationship?: Yes History History 3 Para 3 Hx # Term Pregnancies Multiple births Hx # Pregnancies Ectopic pregnancies AB induced Hx Number of Living Children AB spontaneous Exam Const General: cooperative and no acute distress HENMT Mouth: moist mucous membranes Eyes Conjunctivae: normal conjunctivae Sclera: normal sclerae Neck Neck: trachea midline and supple Resp Auscultation: clear to auscultation bilaterally, no rales, no rhonchi and no wheezes Cardio Jugular venous pressure: no JVD Rate: regular rate and not tachycardic Rhythm: regular rhythm GI Palpation: soft, not firm, no guarding, no masses, not rigid and nontender Skin General skin exam: no rashes or lesions noted Neuro General: patient alert, patient awake and tone normal Motor: strength 5/5 throughout Sensory Exam: no sensory deficits noted and other (No saddle anesthesia) Extrem General: no edema Psych Appearance: grossly normal Mental Status: mental status grossly normal Course Vital Signs Vital signs: Vital Signs Temperature 36.1 C L 10/27/19 11:16 Pulse 84 10/27/19 11:16 Respiratory Rate 18 10/27/19 11:16 Blood Pressure 131/75 10/27/19 11:16 Pulse Oximetry 100 10/27/19 11:16 Temperature 36.1 C L 10/27/19 11:16 Temperature Source Temporal Artery Scan 10/27/19 11:16 Pulse 75 10/27/19 14:01 Respiratory Rate 18 10/27/19 11:16 Respiratory Effort Non-Labored 10/27/19 11:21 Blood Pressure 122/80 10/27/19 14:01 Blood Pressure Mean 89 10/27/19 14:01 Blood Pressure Position Supine 10/27/19 11:16 Pulse Oximetry 98 10/27/19 14:01 Oxygen Delivery Method Room Air 10/27/19 11:16 Oxygen Flow Rate 0 10/27/19 11:16 Pain Level 10 10/27/19 13:11 Lab/Test Results Lab/Test Results: Laboratory Tests Range/Units 10/27/19 10/27/19 11:50 11:50 WBC (4.4-10.8) k/cumm 4.76 RBC (4.00-5.20) m/cumm 4.83 Hgb (12.0-15.5) g/dL 15.0 Hct (36.0-46.0) % 44.1 MCV (80-95) fL 91.3 MCH (27.0-33.0) pg 31.1 MCHC (32.0-36.0) g/dL 34.0 RDW (11.7-14.6) % 13.0 Plt Count (130-400) x1000/uL 313 MPV (8.0-11.0) fL 8.4 Immature Gran % % 0.2 Neutrophils % 55.7 Lymphocytes % 37.2 Monocytes % 4.8 Eosinophils % 1.9 Basophils % 0.2 Absolute Neutrophils (1.2-6.7) k/cumm 2.65 Absolute Lymphocytes (1.2-3.4) k/cumm 1.77 Absolute Monocytes (0.11-0.7) k/cumm 0.23 Absolute Eosinophils (0.0-0.7) k/cumm 0.09 Absolute Basophils (0.0-0.2) k/cumm 0.01 Sodium (136-145) mmol/L 144 Potassium (3.5-5.1) mmol/L 4.0 Chloride (98-107) mmol/L 106 Carbon Dioxide (21.0-32.0) mmol/L 30.0 Anion Gap (3-11) mmol/L 8.0 BUN (7-18) mg/dL 13 Creatinine (0.55-1.02) mg/dL 0.75 Estimated GFR/1.73 m2 (mL/min/1.73m2) >= 60.00 Glucose (74-106) mg/dL 117 H Calcium (8.5-10.1) mg/dL 9.5 Total Bilirubin (0.2-1.0) mg/dL 0.3 AST (15-37) U/L 20 ALT (14-59) U/L 37 Alkaline Phosphatase (46-116) U/L 65 Total Protein (6.4-8.2) g/dL 7.4 Albumin (3.4-5.0) g/dL 3.7
== END 2019-10-27 15:24 | disposition home or self-care (01) ==
PROVIDERS: Emergency Provider Student in an Organized Health Care Education/Training Program; PCP Family Medicine
DX: M54.5 Low back pain (principal); M79.7 Fibromyalgia; R32 Unspecified urinary incontinence; M62.830 Muscle spasm of back
CPT/HCPCS: 72158; 80053; 96361; 96374; 96375; 99284; 85025; J1885; J3360

== ENCOUNTER 2020-02-19 09:16 | Outpatient (CLI) | payer MEDICAID, SELFPAY ==
--- NOTE | 2020-02-18 15:00 | DI.RAD_ITS ---
EXAM: XR CERVICAL SP COMP W FLEX/EXT CLINICAL HISTORY: Headache and neck pain, worse with turning neck, M54.2-cervicalgia. TECHNIQUE: 2D digital imaging was performed. COMPARISON: No exams were available for comparison FINDINGS: BONES: No fracture or destructive lesion. Vertebral bodies are unremarkable. DISKS: Intervertebral disc spaces are maintained. Small in place osteophytes are seen from C4-5 throu gh C6-7. ALIGNMENT: Cervical spinal alignment is within normal limits. The odontoid and atlantoaxial articulat ions are normal. SOFT TISSUE: Normal. The lung apices are clear. IMPRESSION: Mild degenerative changes in the cervical spine. DATA REPOSITORY: RADIATION DOSE DELIVERED:
== END 2020-02-19 09:36 ==
PROVIDERS: PCP Family Medicine; Visit Provider Family Medicine
DX: M54.2 Cervicalgia (principal); M50.321 Other cervical disc degeneration at C4-C5 level; M25.78 Osteophyte, vertebrae
CPT/HCPCS: 72052

== ENCOUNTER 2020-06-07 08:33 | Outpatient (CLI) | payer MEDICAID, SELFPAY ==
[2020-06-07 10:04] LABS: Hemoglobin A1C 5.9 % (<5.7)
[2020-06-07 10:15] LABS: ESR 14 mm/hr (0-30)
[2020-06-07 10:24] LABS: ALT 25 U/L (14-59); AST 13 U/L (15-37); Albumin 3.9 g/dL (3.4-5.0); Alkaline Phosphatase 70 U/L (46-116); Anion Gap 5.7 mmol/L (3-11); BUN 20 mg/dL (7-18); Bilirubin, Total 0.4 mg/dL (0.2-1.0); CO2 32.3 mmol/L (21.0-32.0); CREATININE 0.88 mg/dL (0.55-1.02); Calcium 10.2 mg/dL (8.5-10.1); Calculated LDL 192 mg/dL (<100); Chloride 104 mmol/L (98-107); Cholesterol 279 mg/dL (<200); Glucose 124 mg/dL (74-106); HDL Cholesterol 66 mg/dL (40-60); Potassium 4.7 mmol/L (3.5-5.1); Sodium 142 mmol/L (136-145); TSH (W/Ref FT4) 0.88 uIU/mL (0.36-3.74); Total Protein 7.1 g/dL (6.4-8.2); Triglyceride 106 mg/dL (<150)
[2020-06-16 15:17] LABS: Rheumatoid Factor <15 IU/mL (<15)
[2020-06-16 15:19] LABS: CRP, High Sensitivity 4.2 mg/L (<2.0)
== END 2020-06-07 08:53 ==
PROVIDERS: PCP Nurse Practitioner Family; Visit Provider Nurse Practitioner Family
DX: R73.03 Prediabetes (principal); E78.5 Hyperlipidemia, unspecified; M79.7 Fibromyalgia
CPT/HCPCS: 36415; 80053; 80061; 85652; 86141; 83036; 84443; 86431

== ENCOUNTER 2020-06-27 13:36 | Outpatient (REF) | payer MEDICAID, SELFPAY ==
--- NOTE | 2020-06-27 13:00 | PAPFT_PTH ---
PATIENT: Carri Fermin LOC: [facility] U#:[id number] AGE/SX: 55/F ROOM: RE06/27/[address]: MICHELLE Rivas : 1965 BED: DIS: 06/27/2020 SPEC #: [id number] RECD: 06/27/20 18:28 STATUS: ARNALDO REQ #: [id number] YAMILKA: 06/27/20 13:[address]: Hannah Lemus DEPT: [facility] Cytology RECD BY: Ayaka Vital ENTERED: 06/27/20 18:29 SP TYPE: PAPFT OTHR DR: MICHELLE Ashton Tissues: 1 - CX/ENDOCX FOR PAP SMEARS Procedures: PAP THIN PREP/UVM Screening HPV DNA PROBE Comments: [id number]
== END 2020-06-27 13:56 ==
LOC: LBN 13:36
PROVIDERS: PCP Nurse Practitioner Family; Visit Provider Nurse Practitioner Family
DX: Z12.4 Encounter for screening for malignant neoplasm of cervix (principal); R87.810 Cervical high risk human papillomavirus (HPV) DNA test positive; Z97.5 Presence of (intrauterine) contraceptive device
CPT/HCPCS: 88142; 87624

== ENCOUNTER 2020-07-04 00:16 | Outpatient (CLI) | payer MEDICAID, SELFPAY ==
--- NOTE | 2020-07-04 07:15 | DI.MAMMO_ITS ---
EXAM: MG MAMMO SCREENING CLINICAL HISTORY: screening,Z12.39. TECHNIQUE: Bilateral full field digital CC and MLO mammographic images were obtained with 3D tomosyn thesis and utilizing computer aided detection (CAD). COMPARISON: Prior mammograms dating back to 2014, the most recent being September 2018. FINDINGS: There are no new dominant masses nor malignant appearing microcalcification groups. There is no new architectural distortion nor skin thickening-retraction. IMPRESSION: No radiographic evidence of malignancy. BI-RADS Category 1 - Negative Breast Density - Category B - Scattered areas of fibroglandular density Breast density Category C or D implies that the patient has dense breast tissue. Dense breast tissue can make it harder to find cancer on a mammogram. Dense breast tissue is also associated with an incr eased risk of breast cancer. This information about the result of the mammogram report was provided to the patient to raise their awareness. Use this report when you speak with the patient about their risks for breast cancer, which includes their family history. At that time, you may recommend additional screening tests (Ultrasoun d or MRI) as these tests may add significant information. A negative radiographic report should not delay biopsy if a dominant or clinically suspicious mass is present. Up to ten percent of cancers are not identified on mammography. A negative report may reinforce clinical impression. Adenosis and dense breasts may obscure an underlying neoplasm. False positive reports average 6 to 10%. Patient will receive a letter notifying them of these results.
== END 2020-07-04 00:36 ==
PROVIDERS: PCP Nurse Practitioner Family; Visit Provider Nurse Practitioner Family
DX: Z12.31 Encounter for screening mammogram for malignant neoplasm of breast (principal)
CPT/HCPCS: 77063; 77067

== ENCOUNTER 2020-09-09 14:42 | Outpatient (REF) | payer MEDICAID, SELFPAY ==
[2020-09-09 14:08] LABS: Calculated LDL 118 mg/dL (<100); Cholesterol 216 mg/dL (<200); HDL Cholesterol 65 mg/dL (40-60); Triglyceride 169 mg/dL (<150)
== END 2020-09-09 14:43 | disposition home or self-care (01) ==
LOC: LBN 14:42
PROVIDERS: PCP Nurse Practitioner Family; Visit Provider Nurse Practitioner Family
DX: E78.5 Hyperlipidemia, unspecified (principal)
CPT/HCPCS: 80061

== ENCOUNTER 2021-07-06 02:16 | Outpatient (CLI) | payer MEDICAID, SELFPAY ==
--- NOTE | 2021-07-06 12:20 | DI.MAMMO_ITS ---
Exam(s) MAMMO SCREENING EXAM: MAMMO SCREENING CLINICAL HISTORY: screening,z12.39. TECHNIQUE: Bilateral full field digital CC and MLO mammographic images were obtained with 3D tomosyn thesis and utilizing computer aided detection (CAD). COMPARISON: Prior mammograms dating back to 2014, the most recent being June 2020. FINDINGS: There are no CAD designations. There are no new spiculated masses nor malignant appearing microcalcification groups. There is no significant architectural distortion nor skin thickening-retraction. IMPRESSION: No radiographic evidence of malignancy. BI-RADS Category 1 - Negative Breast Density - Category B - Scattered areas of fibroglandular density Breast density Category C or D implies that the patient has dense breast tissue. Dense breast tissue can make it harder to find cancer on a mammogram. Dense breast tissue is also associated with an incr eased risk of breast cancer. This information about the result of the mammogram report was provided to the patient to raise their awareness. Use this report when you speak with the patient about their risks for breast cancer, which includes their family history. At that time, you may recommend additional screening tests (Ultrasoun d or MRI) as these tests may add significant information. A negative radiographic report should not delay biopsy if a dominant or clinically suspicious mass is present. Up to ten percent of cancers are not identified on mammography. A negative report may reinforce clinical impression. Adenosis and dense breasts may obscure an underlying neoplasm. False positive reports average 6 to 10%. Patient will receive a letter notifying them of these results.
== END 2021-07-06 02:36 ==
PROVIDERS: PCP Nurse Practitioner Family; Visit Provider Nurse Practitioner Family
DX: Z12.31 Encounter for screening mammogram for malignant neoplasm of breast (principal)
CPT/HCPCS: 77063; 77067

== ENCOUNTER 2021-09-27 01:17 | Outpatient (CLI) | payer MEDICAID, SELFPAY ==
[2021-09-27 09:00] VITALS: BP 116/67; PULSE 86; RESP 18; TEMP 36.4; O2SAT 98
== END 2021-09-27 01:18 | disposition home or self-care (01) ==
LOC: INF 01:17
PROVIDERS: PCP Nurse Practitioner Family; Visit Provider Family Medicine
DX: U07.1 COVID-19 (principal)
CPT/HCPCS: 96365; Q0047

== ENCOUNTER 2021-10-26 12:07 | Outpatient (REF) | payer MEDICAID, SELFPAY ==
--- NOTE | 2021-10-26 10:00 | PAPFT_PTH ---
PATIENT: Carri Fermin LOC: [facility] U#:[id number] AGE/SX: 56/F ROOM: RE10/26/[address]: MICHELLE Rivas : 1965 BED: DIS: 10/26/2021 SPEC #: [id number] RECD: 10/26/21 12:43 STATUS: ARNALDO REBhakti #: [id number] YAMILKA: 10/26/21 10:[address]: Hannah Lemus DEPT: [facility] Cytology RECD BY: Ayaka Vital ENTERED: 10/26/21 12:43 SP TYPE: PAPFT OT DR: MICHELLE Ashton Tissues: 1 - CX/ENDOCX FOR PAP SMEARS Procedures: PAP THIN PREP/UVM Screening HPV DNA PROBE Comments: [id number]
== END 2021-10-26 12:08 | disposition home or self-care (01) ==
LOC: LBN 12:07
PROVIDERS: PCP Nurse Practitioner Family; Visit Provider Nurse Practitioner Family
DX: R87.611 Atypical squamous cells cannot exclude high grade squamous intraepithelial lesion on cytologic smear of cervix (ASC-H) (principal); Z12.4 Encounter for screening for malignant neoplasm of cervix; Z11.51 Encounter for screening for human papillomavirus (HPV); Z87.42 Personal history of other diseases of the female genital tract
CPT/HCPCS: 88142; 87624

== ENCOUNTER 2021-11-03 01:02 | Outpatient (CLI) | payer MEDICAID, SELFPAY ==
--- NOTE | 2021-11-03 06:45 | DI.US_ITS ---
Exam(s) US PELVIS TRANSVAGINAL EXAM: US PELVIS TRANSVAGINAL CLINICAL HISTORY: CHECK IUD POSITION,Z30.431 TECHNIQUE: Ultrasound of the pelvis was performed both transabdominal and transvaginal. COMPARISON: US from 08/25/2012 FINDINGS: UTERUS: Nongravid anteverted. Measures 10 cm length x 3.6 cm AP x 5 cm wide. There are no uterine fibroids. Endometrial thickness measures 7 mm. There is an IUD but it is located with in the cervical canal, lower than desired CERVIX: There are no obvious nabothian cysts. RIGHT OVARY: Measures 2.4 x 1.0 x 2.1 cm No significant cysts nor masses evident in the right ovary. LEFT OVARY: Measures 1.8 x 1.0 x 1.6 cm No significant cysts nor masses evident in the left ovary. CUL-DE-SAC: No free fluid evident. IMPRESSION: 1. Main finding here is at the IUD is located the cervical canal requires repositioning into the endo metrial cavity 2. No abnormal adnexal findings 3. No free fluid evident in the adnexal regions and cul-de-sac. DATA REPOSITORY:
== END 2021-11-03 01:22 ==
PROVIDERS: PCP Nurse Practitioner Family; Visit Provider Nurse Practitioner Family
DX: Z30.431 Encounter for routine checking of intrauterine contraceptive device (principal); T83.32XA Displacement of intrauterine contraceptive device, initial encounter
CPT/HCPCS: 76830; 76856

== ENCOUNTER 2021-11-13 02:35 | Outpatient (CLI) | payer MEDICAID, SELFPAY ==
[2021-11-13 10:55] LABS: Abs Immature Grans 0.01 10^3/uL (0.0-0.06); Absolute Basophil Count 0.03 10^3/uL (0.0-0.2); Absolute Eosinophil Count 0.12 10^3/uL (0.0-0.7); Absolute Lymphocyte Count 2.33 10^3/uL (1.2-3.4); Absolute Monocyte Count 0.36 10^3/uL (0.1-0.8); Absolute Neutrophil Count 2.33 10^3/uL (1.2-6.7); Basophils % 0.6; Eosinophils % 2.3; HCT 41.8 % (36.0-46.0); HGB 13.6 g/dL (11.2-15.7); Immature Grans % 0.2; MCH 30.2 pg (27.0-33.0); MCHC 32.5 % (32.0-36.0); MCV 92.9 fL (80-95); MPV 8.2 fL (8.0-11.0); Monocytes % 6.9; Platelet Count 298 10^3/uL (130-400); RDW 12.5 % (11.7-14.6); RDW-SD 43.1 fL; WBC 5.18 10^3/uL (4.4-10.8)
[2021-11-13 12:10] LABS: Source Nasal/Nares
[2021-11-13 15:36] LABS: COVID-19 PCR Negative (Negative)
== END 2021-11-13 02:36 | disposition home or self-care (01) ==
LOC: LBO 02:36
PROVIDERS: PCP Nurse Practitioner Family; Visit Provider Obstetrics & Gynecology
DX: Z01.818 Encounter for other preprocedural examination (principal); Z20.822 Contact with and (suspected) exposure to COVID-19
CPT/HCPCS: 36415; 86850; 86900; 86901; 87635; 85025

== ENCOUNTER 2021-11-13 02:42 | Outpatient (CLI) | payer MEDICAID, SELFPAY | END 2021-11-13 02:43 | disposition home or self-care (01) | LOC: LBO 02:42 | PROVIDERS: PCP Nurse Practitioner Family; Visit Provider Obstetrics & Gynecology ==

== ENCOUNTER 2021-11-15 07:36 | Day surgery (SDC) | payer MEDICAID, SELFPAY ==
[2021-11-15 08:07] VITALS: BP 114/78; PULSE 83; RESP 17; TEMP 37; O2SAT 99
[2021-11-15] MEDS: Lactated Ringers 1,000 ML 125 ML IV (08:23)
--- NOTE | 2021-11-15 08:46 | W.ANESPRE ---
General Info Date of Service Date Performed: 11/15/21 Height: 5 ft 1 in Weight: 85.6 kg Body Mass Index (BMI): 35.6 Surgical Procedure: Operation Date: 11/15/21 09:10 Proposed Procedure Side Surgeon p Hysteroscopy Syeda Devine DO s Removal of IUD Syeda Devine DO Meds Allergies and Home Medications Allergies Allergy/AdvReac Type Severity Reaction Status Date / Time amoxicillin Allergy HIVES Verified 11/15/21 07:58 clavulanic acid Allergy HIVES Verified 11/15/21 07:58 levofloxacin Allergy RASH Verified 11/15/21 07:58 Penicillins Allergy HIVES Verified 11/15/21 07:58 imipramine AdvReac Intermediate Palpitations, Verified 11/15/21 07:58 slurred speech ondansetron AdvReac constipation. Verified 11/15/21 07:58 Hallucinations in combination with meclizine VENLAFAXINE AdvReac Unknown Unknown Uncoded 11/15/21 07:58 Home Medication Medication Instructions Recorded vitamin B complex 1 ea PO DAILY 10/07/12 levonorgestrel 20 mcg/24 hours (7 1 ea INTRAUTERINE DAILY 10/09/12 yrs) 52 mg intrauterine device (Mirena) inhalational spacing device #1 u 08/06/17 (Aerochamber Plus Flow-Vu) Lactobacillus 1 cap PO DAILY cap 10/16/18 acidophilus-Bifidobac.animalis 2.5 billion cell capsule (Daily Probiotic) cholecalciferol (vitamin D3) 10 400 unit PO DAILY 10/16/18 mcg (400 unit) capsule fluticasone propionate 50 2 spray NS DAILY PRN spray 09/07/19 mcg/actuation nasal spray,suspension ibuprofen 600 mg tablet 600 mg PO Q8H PRN #30 tab 10/27/19 meclizine 25 mg tablet 25 mg PO BID PRN #30 tab 11/01/20 acetaminophen 500 mg capsule 1,000 mg PO DAILY cap 06/06/21 naproxen sodium 220 mg tablet 440 mg PO DAILY tab 06/06/21 (Aleve) pravastatin 40 mg tablet 40 mg PO DAILY #90 tab 06/06/21 albuterol sulfate 90 mcg/actuation 2 puff INHALATION Q6H PRN #3 07/14/21 aerosol inhaler (ProAir HFA) inhaler diazepam 10 mg tablet 10 mg PO DAILY PRN #30 tab 07/19/21 baclofen 10 mg tablet 10 mg PO TID PRN #90 tab 08/31/21 clotrimazole 1 % topical cream 1 applic TOPICAL BID #45 g 10/26/21 estradiol 10 mcg vaginal tablet 10 mcg VG DAILY #26 ea 10/26/21 (Vagifem) polyethylene glycol 3350 17 17 g PO DAILY PRN #119 g 11/08/21 gram/dose oral powder duloxetine 60 mg capsule,delayed 60 mg PO HS 11/13/21 release hydrocodone 5 mg-acetaminophen 325 0.5 tab PO PRN PRN 11/15/21 mg tablet Current Visit Medications: Current Medications Generic Name Dose Route Start Last Admin Trade Name Freq PRN Reason Stop Dose Admin Ringer's Solution 1,000 mls @ 125 mls/hr 11/15/21 06:00 11/15/21 08:23 IV 12/14/21 23:59 125 mls/hr INFUSION SALINA Administration IV Miscellaneous Supplies 1 each 11/15/21 06:00 Iv Access IV 12/14/21 23:59 DIRECTED SALINA Sodium Chloride 0 ml 11/15/21 06:00 Normal Saline Flush 10 Ml Syr IV 12/14/21 23:59 PRN PRN Sodium Chloride 0 ml 11/15/21 06:00 Normal Saline 10 Ml Vial IJ 12/14/21 23:59 DIRECTED PRN Sterile Water 0 ml 11/15/21 06:00 Water,Injection,Sterile 10 Ml Vial IJ 12/14/21 23:59 DIRECTED PRN PFSH Active Problems Active Problems: Problem Status Onset Code Depressive disorder F32.9 Hyperlipidemia E78.5 Prediabetes R73.03 Fibromyalgia M79.7 Mild intermittent asthma J45.20 Generalized anxiety disorder F41.1 Cigarette smoker F17.210 Lumbar back pain with radiculopathy affecting lower extremity M54.16 Abnormal uterine bleeding N93.9 Cervical high risk human papillomavirus (HPV) DNA test positive R87.810 IUD surveillance Z30.431 Medical History Medical History COVID-19 (~09/21/21) 08/2021 HPV (human papilloma virus) anogenital infection Overactive bladder Pulmonary tuberculosis Surgical History Surgical History History of bilateral tubal ligation S/P section S/P colonoscopy (11/23/16) Tobacco Smoking/Tobacco Use Status: Former Tobacco Use Second hand exposure: Yes Alcohol Alcohol Intake: current Alcohol intake frequency: a few times a month Alcohol type: beer and wine Substance Use Substance use: Never Substance use type: prescription drug Prental History History 4 Para 3 Hx # Term Pregnancies Multiple births Hx # Pregnancies Ectopic pregnancies AB induced Hx Number of Living Children AB spontaneous Vital Signs and Lab Results Vital Signs Most Recent Vital Signs in EMR: Most Recent Vital Signs Temp Pulse Resp BP Pulse Ox 37.0 C 83 17 114/78 99 11/15/21 08:07 11/15/21 08:07 11/15/21 08:07 11/15/21 08:07 11/15/21 08:07 Point of Care Results Point of Care Results: POC- Test(urine) Negative 11/15/21 08:13 Lab Results Blood Type / Crossmatch: Patient ABO/Rh O Positive 11/13/21 Antibody Screen NEGATIVE 11/13/21 Complete Blood Count: White Blood Count 5.18 10^3/uL (4.4-10.8) 11/13/21 10:30 11/13/21 Red Blood Count 4.50 10^6/uL (3.93-5.22) 11/13/21 10:30 11/13/21 Hemoglobin 13.6 g/dL (11.2-15.7) 11/13/21 10:30 11/13/21 Hematocrit 41.8 % (36.0-46.0) 11/13/21 10:30 11/13/21 Platelet Count 298 10^3/uL (130-400) 11/13/21 10:30 11/13/21 Complete Metabolic Panel: No Data to Display Liver Function Panel: No Data to Display Coagulation Panel: No Data to Display Cardiac Panel: No Data to Display Arterial Blood Gas: No Data to Display Venous Blood Gas: No Data to Display Pancreas Panel: No Data to Display Thyroid Panel: No Data to Display Infectious Disease: Coronavirus (COVID-19)(PCR) Negative (Negative) 11/13/21 10:40 11/13/21 Coronavirus 2019 Source Nasal/Nares 11/13/21 10:40 11/13/21 Blood Cultures: No Data to Display Toxicology Panel: No Data to Display Panel: No Data to Display Anesthesia Assessment and Plan Anesthesia History Personal History: No History of Anesthesia Complications Family History: No Family History of Anesthesia Complications Exercise Tolerance Exercise Tolerance: Metabolic Equivalents>4 Pertinent Negatives Pertinent Negatives: No Symptoms of GERD, No Major Cardiovascular Symptoms or Complaints, No History of CVA/TIA and Other (Last albuterol a week ago) Cardiac & Pulmonary Exam Cardiac Exam: Normal S1/S2 Heart Sounds Pulmonary Exam: Clear Bilateral Breath Sounds Implantable Cardiac Device Does patient have a Pacemaker or an ICD?: No Airway Exam Known Difficult Airway: No Mallampati Class: 3 Mouth Opening: Narrow (< 3cm) Thyromental Distance: Less than 3 cm Neck Range of Motion: Full ROM Neck Circumference: Normal Teeth Condition: Normal Dentition ASA Classification ASA Score: ASA 2 Emergency Case?: No NPO Status NPO Status: NPO Clears >2 hours, Solids >8 hours Status Status: Not Relevant due to Medical History Anesthesia Plan Resuscitation Status: Full Code Anesthesia Technique: MAC Anesthesia Airway Planned: Natural Airway Monitors Used: Standard Monitors
[2021-11-15 08:51] VITALS: BMI 35.6
--- NOTE | 2021-11-15 09:45 | W.PM.OP ---
Date of service: 11/15/21 Time of Service: 09:45 Operative Note Operative Note DATE OF PROCEDURE: 11/15/21 PRE-OP DIAGNOSIS: Retained intrauterine device POST-OP DIAGNOSIS: same PROCEDURE: Exam under anesthesia, removal of intrauterine device SURGEON: Syeda Devine ANESTHESIA TYPE: General:No Airway Refer to Anesthesia Record ESTIMATED BLOOD LOSS: 5 PATHOLOGY: none sent COMPLICATIONS: None Patient was transported to: same day Patient's condition: stable Indications: Retained intrauterine device with loss of strings Findings: Normal size uterus. Normal pelvic exam. Successful removal of intrauterine device. Procedure Description: Patient is a 62-year-old female with a Mirena system in place for greater than 10 years. Attempt was made for removal in the office, though complication of string breakage was noted. She had a pelvic ultrasound which confirmed intrauterine device in the uterus, upper endocervical canal. Risk benefits and alternatives of procedure which would be exam under anesthesia, possible hysteroscopy dilation and curettage were explained to the patient in full informed consent was obtained. She was taken the operating suite with an IV running where she was placed in dorsal supine position and anesthesia administered, general with no airway. She was then placed in the modified dorsolithotomy position in [facility] and prepped and draped in usual sterile fashion. Speculum was inserted into the vaginal vault and a single-tooth tenaculum used to grasp the anterior cervix. Cervical os dilated to the point that a small Lorena forcep could be placed within the cervical os. The IUD was able to be palpated with the instrument and grasped. With gentle downward traction the IUD was removed. It was completely intact. Single-tooth tenaculum was then removed. Puncture sites were hemostatic. Speculum removed. Patient was returned to the dorsal supine position and awoke from anesthesia with ease. EBL: 5 mL Complications: None apparent Fluids: Crystalloid per anesthesia Pathology: None sent
[2021-11-15 10:02] VITALS: BP 98/80; PULSE 89; RESP 16; TEMP 36.1; O2SAT 98
[2021-11-15] MEDS: Ketorolac 15 MG/ML VIAL IVP (10:23)
[2021-11-15 10:33] VITALS: BP 108/80; PULSE 76; RESP 18; TEMP 36.1; O2SAT 99
[2021-11-15 10:55] VITALS: BP 117/64; PULSE 88; RESP 16; TEMP 36.4; O2SAT 98
--- NOTE | 2021-11-15 11:00 | W.ANESPOSTOP ---
Postoperative Evaluation Date, Time and Location Date Performed: 11/15/21 Time Performed: 11:01 Patient Location: Day Surgery Unit Vital Signs Most Recent Imported Vital Signs: Most Recent Vital Signs Temp Pulse Resp BP Pulse Ox 36.1 C L 76 18 108/80 99 11/15/21 10:33 11/15/21 10:33 11/15/21 10:33 11/15/21 10:33 11/15/21 10:33 Pain Score Most Recent Pain Score: Most Recent Pain Score Pain Level 4 11/15/21 10:33 Assessment Mental Status: Awake (Alert & Oriented to Patient Baseline) Airway and Respiratory Function: Patent airway with normal (patient baseline) respiratory exam Cardiovascular Function: Hemodynamically Stable Hydration Status: Adequately Hydrated Nausea & Vomiting: No Nausea or Vomiting Pain: Pt. Denies Any Pain Peripheral Nerve Block: Patient did not receive a nerve block
== END 2021-11-15 11:20 | disposition home or self-care (01) ==
PROVIDERS: PCP Nurse Practitioner Family; Visit Provider Obstetrics & Gynecology
PROC: (CPT 58301; 2021-11-15 09:00)
DX: T83.32XA Displacement of intrauterine contraceptive device, initial encounter (principal); R73.03 Prediabetes; F17.210 Nicotine dependence, cigarettes, uncomplicated; F41.1 Generalized anxiety disorder; E78.5 Hyperlipidemia, unspecified
CPT/HCPCS: 58301; 81025; J1885; J2001; J2704

== ENCOUNTER 2021-12-07 15:44 | Outpatient (REF) | payer MEDICAID, SELFPAY ==
--- NOTE | 2021-12-07 15:35 | ENDO_PTH ---
PATIENT: Carri Fermin LOC: [facility] U#:[id number] AGE/SX: 56/F ROOM: RE12/07/[address]: Syeda Devine DO : 1965 BED: DIS: 12/07/2021 SPEC #: [id number] RECD: 12/07/21 18:31 STATUS: ARNALDO REQ #: [id number] YAMILKA: 12/07/21 15:[address]: Syeda Devine DEPT: Surgical Specimen RECD BY: Ayaka Vital ENTERED: 12/07/21 18:31 SP TYPE: Endo OTHR DR: MICHELLE Ashton Tissues: 1 - ENDOCERVICAL BX/CURRETTE Procedures: GROSS AND MICRO LEVEL 4 Comments: [id number]
== END 2021-12-07 15:45 | disposition home or self-care (01) ==
LOC: LBN 15:44
PROVIDERS: PCP Nurse Practitioner Family; Visit Provider Obstetrics & Gynecology
DX: R87.610 Atypical squamous cells of undetermined significance on cytologic smear of cervix (ASC-US) (principal)
CPT/HCPCS: 88305

== ENCOUNTER 2022-06-14 03:31 | Outpatient (CLI) | payer MEDICAID, SELFPAY ==
[2022-06-14 13:23] LABS: ESR 1 mm/hr (0-30)
[2022-06-14 13:25] LABS: Absolute Basophil Count 0.03 10^3/uL (0.0-0.2); Absolute Eosinophil Count 0.15 10^3/uL (0.0-0.7); Absolute Monocyte Count 0.24 10^3/uL (0.1-0.8); Absolute Neutrophil Count 2.13 10^3/uL (1.2-6.7); Basophils % 0.7; Eosinophils % 3.6; HCT 42.5 % (36.0-46.0); HGB 14.2 g/dL (11.2-15.7); Lymphocytes % 38.6; MCH 30.9 pg (27.0-33.0); MCHC 33.4 % (32.0-36.0); MCV 92 fL (80-95); MPV 8.7 fL (8.0-11.0); Monocytes % 5.8; Neutrophils % 51.3; Platelet Count 268 10^3/uL (130-400); RDW 12.3 % (11.7-14.6); RDW-SD 41.6 fL; WBC 4.15 10^3/uL (4.4-10.8)
[2022-06-14 14:25] LABS: ALT 31 U/L (14-59); AST 17 U/L (15-37); Alkaline Phosphatase 59 U/L (46-116); Anion Gap 5.7 mmol/L (3-11); BUN 22 mg/dL (7-18); Bilirubin, Total 0.6 mg/dL (0.2-1.0); CO2 31.3 mmol/L (21.0-32.0); CREATININE 0.9 mg/dL (0.55-1.02); Calcium 9.3 mg/dL (8.5-10.1); Chloride 102 mmol/L (98-107); Glucose 84 mg/dL (74-106); Potassium 4.4 mmol/L (3.5-5.1); Sodium 139 mmol/L (136-145); Total Protein 7.3 g/dL (6.4-8.2)
[2022-06-14 22:29] LABS: CRP, High Sensitivity 1.65 mg/L (See Note)
[2022-06-15 11:08] LABS: Lyme Ab w Rflx to Lyme Confirm Negative (Negative)
[2022-06-17 19:27] LABS: Anaplasma phagocytophilum Negative (Negative); B. miyamotoi PCR Negative (Negative); Babesia divergens/MO-1 Negative (Negative); Babesia duncani Negative (Negative); Babesia microti Negative (Negative); Ehrlichia chaffeensis Negative (Negative); Ehrlichia ewingii/canis Negative (Negative); Ehrlichia muris eauclairensis Negative (Negative)
== END 2022-06-14 03:32 | disposition home or self-care (01) ==
LOC: LBO 03:31
PROVIDERS: PCP Nurse Practitioner Family; Visit Provider Nurse Practitioner Family
DX: M25.511 Pain in right shoulder (principal); M25.512 Pain in left shoulder
CPT/HCPCS: 36415; 80053; 85652; 86141; 87798; 84443; 85025; 86618

== ENCOUNTER → 2022-06-28 03:07 | Outpatient (CLI) | payer MEDICAID, SELFPAY ==
--- NOTE | 2022-06-28 07:45 | DI.MRI_ITS ---
Exam(s) MR UPPER JOINT RT WO EXAM: MR UPPER JOINT RT WO yes exudative poss suggest 3rd chest CLINICAL HISTORY: Shoulder pain, limited ROM, PT not resolving,M25.511. TECHNIQUE: Multiplanar multisequence MRI was performed. COMPARISON: None FINDINGS: MR examination of the shoulder was performed according to the usual protocol. There is a small effusion of the glenohumeral joint. Small quantity of fluid fluid in the subacromia l subdeltoid bursa. Bones and labrum hypertrophic changes noted at the acromioclavicular joint. Glenoid labrum appears i ntact. Rotator cuff: There is abnormal signal in the rotator interval. There is abnormal signal in superio r of portions of subscapularis muscle and tendon consistent with tendinosis with some a probable supe rior margin tearing. There is abnormal signal of supraspinatus tendon consistent with tendinosis wit h an apparent full-thickness tear measuring about 8-9 millimeters x 5 millimeters at the level of the convexity of the humeral head. Minimal undersurface tearing of the supraspinatus footprint may also be present period there may also be mild peripheral tearing of myotendinous junction region of supra spinatus . Infraspinatus tendon shows mildly abnormal signal with no gross tear. Teres minor is unremarkable.. Biceps tendon and anchor: Biceps tendon and anchor show normal signal and no evidence of a tear. Edwar ps tendon is normally positioned in the bicipital groove. IMPRESSION: Rotator cuff tear as described above involving subscapularis, and supraspinatus with a full-thickness supraspinatus tendon tear noted, non retracted. There appears to be fairly good preservation of the rotator cuff musculature. DATA REPOSITORY:
--- NOTE | 2022-06-28 07:45 | DI.MRI_ITS ---
Exam(s) MR UPPER JOINT LT WO CLINICAL HISTORY: Shoulder pain, PT not resolving,M25.512. TECHNIQUE: Multiplanar multisequence MRI was performed. COMPARISON: None FINDINGS: MR examination of the shoulder was performed according to the usual protocol. There is a small effusion of the glenohumeral joint. No fluid in the subacromial subdeltoid bursa. Bones and labrum: Hypertrophic degenerative changes at the acromioclavicular joint period no other si gnificant findings.. Glenoid labrum appears intact. Rotator cuff: There is abnormal signal of the supraspinatus tendon in the myotendinous junction rogerio on and more distal tendon period there is minimal undersurface and mid substance tearing at the footp rint. There is minimal intrasubstance tearing at the myotendinous junction. No retracted tendon tea r or full-thickness tear of supraspinatus. New There is abnormal signal is subscapularis with probable superior margin tearing, no retracted tear se en.. Rotator interval structures show mildly abnormal signal with no discrete tear tear. Biceps tendon and anchor: Biceps anchor shows some abnormal signal which may represent minimal tearin g , no detached tear seen. Mildly abnormal signal in proximal biceps tendon.. Biceps tendon is norm ally positioned in the bicipital groove. IMPRESSION: Minor non retracted tearing of subscapularis and supraspinatus. Abnormal signal at biceps anchor may represent mild tearing with no evidence of detachment. DATA REPOSITORY:
== END ==
PROVIDERS: PCP Nurse Practitioner Family; Visit Provider Nurse Practitioner Family
DX: M75.101 Unspecified rotator cuff tear or rupture of right shoulder, not specified as traumatic (principal); M75.102 Unspecified rotator cuff tear or rupture of left shoulder, not specified as traumatic
CPT/HCPCS: 73221

== ENCOUNTER 2022-07-03 10:05 | Outpatient (CLI) | payer MEDICAID, SELFPAY ==
--- NOTE | 2022-07-03 09:15 | DI.RAD_ITS ---
Exam(s) XR SHOULDER LT COMPLETE 2+V EXAM: XR SHOULDER LT COMPLETE 2+V CLINICAL HISTORY: left rotator cuff tear. TECHNIQUE: 2D digital imaging was performed of the left shoulder. Two images were obtained. AP and axillary views were obtained. COMPARISON: MR MR UPPER JOINT LT WO from 06/28/2022 FINDINGS: BONES: No acute fracture is present. No bony destructive lesion is seen. JOINTS: No dislocation present. There are moderate degenerative changes of the AC joint. SOFT TISSUE: Normal. IMPRESSION: Degenerative changes of the AC joint. DATA REPOSITORY: RADIATION DOSE DELIVERED:
--- NOTE | 2022-07-03 09:15 | DI.RAD_ITS ---
Exam(s) XR SHOULDER RT COMPLETE 2+V EXAM: XR SHOULDER RT COMPLETE 2+V CLINICAL HISTORY: right shoulder cuff tear. TECHNIQUE: 2D digital imaging was performed of the right shoulder. Two images were obtained. AP an d axillary views were obtained. COMPARISON: MR MR UPPER JOINT RT WO from 06/28/2022 FINDINGS: BONES: No acute fracture is present. No bony destructive lesion is seen. JOINTS: No dislocation present. Mild degenerative changes are seen at the acromioclavicular joint. SOFT TISSUE: Normal. IMPRESSION: Degenerative changes of the AC joint. DATA REPOSITORY: RADIATION DOSE DELIVERED:
== END 2022-07-03 10:06 | disposition home or self-care (01) ==
LOC: DIORS 10:05
PROVIDERS: PCP Nurse Practitioner Family; Referring Provider Nurse Practitioner Family; Visit Provider Student in an Organized Health Care Education/Training Program
DX: M19.011 Primary osteoarthritis, right shoulder (principal); M19.012 Primary osteoarthritis, left shoulder
CPT/HCPCS: 73030

== ENCOUNTER → 2022-07-12 02:07 | Outpatient (CLI) | payer MEDICAID, SELFPAY ==
--- NOTE | 2022-07-12 07:45 | DI.MAMMO_ITS ---
Exam(s) MAMMO SCREENING EXAM: MAMMO SCREENING CLINICAL HISTORY: screening,z12.39 TECHNIQUE: Bilateral full field digital CC and MLO mammographic images were obtained with 3D tomosyn thesis and utilizing computer aided detection (CAD). COMPARISON: Available for comparison. FINDINGS: Masses/Architectural Distortion: None seen. Microcalcifications: No suspicious pleomorphic-type are seen. Skin Thickening/Nipple Retraction: None. IMPRESSION: 1. No significant interval change with no specific features of malignancy noted. 2. Unless there is more urgent need, screening mammography is recommended, as per [employer] guidelines. BI-RADS Category 1 - Negative Breast Density - Category B - Scattered areas of fibroglandular density Breast density category C or D implies that the patient has dense breast tissue. Dense breast tissue is very common and is not abnormal but dense breast tissue can make it harder to find cancer on a ma mmogram. Also, dense breast tissue may increase their breast cancer risk. This information about the result of the mammogram report was provided to the patient to raise their awareness. Use this report when you speak with the patient about their risks for breast cancer, which includes their family hist ory. At that time, you may recommend for more screening tests (Ultrasound or MRI) as they might be us eful based on their risk. A negative radiographic report should not delay biopsy if a dominant or clinically suspicious mass is present. Up to ten percent of cancers are not identified on mammography. A negative report may reinforce clinical impression. Adenosis and dense breasts may obscure an underlying neoplasm. False positive reports average 6 to 10%. Patient will receive a letter notifying them of these results.
== END ==
PROVIDERS: PCP Nurse Practitioner Family; Visit Provider Nurse Practitioner Family
DX: Z12.31 Encounter for screening mammogram for malignant neoplasm of breast (principal)
CPT/HCPCS: 77063; 77067

== ENCOUNTER 2022-08-07 22:59 | Emergency (ER) | payer MEDICAID, SELFPAY ==
[2022-08-07 23:05] VITALS: BP 134/65; PULSE 80; RESP 16; TEMP 37; O2SAT 99
--- NOTE | 2022-08-07 23:29 | W.ED.GENAD ---
Discharge Plan Disposition Patient Disposition: Home Condition: Good Discharge Details Clinical Impression: Laceration of left index finger Primary Care Provider: Huma Hu ED Provider: Fabien Hammer Home Meds and New Rx's Prescriptions: No Action baclofen 10 mg tablet 10 mg PO TID PRN (Reason: muscle spasm) Qty: 90 4RF cholecalciferol (vitamin D3) 400 unit capsule 400 unit PO DAILY Daily Probiotic 2.5 billion cell capsule 1 cap PO DAILY fluticasone propionate 50 mcg/actuation spray,suspension 2 spray NS DAILY PRN acetaminophen 500 mg capsule 1,000 mg PO DAILY naproxen sodium [Aleve] 220 mg tablet 440 mg PO DAILY pravastatin 40 mg tablet 40 mg PO DAILY Qty: 90 4RF clotrimazole 1 % cream 1 applic topical BID Qty: 45 0RF Rx Instructions: Apply to affected areas twice a day for 2-4wks estradiol [Vagifem] 10 mcg tablet 10 mcg VG DAILY Qty: 26 4RF Rx Instructions: Use 1 tab in the vagina daily for 2 weeks, then twice weekly vitamin B complex 1 EACH tablet 1 ea PO DAILY (DME) Aerochamber Plus Flow-Vu 1 EACH spacer 1 ea Miscellaneous q 4 hours prn 30 Days Qty: 1 1RF meclizine 25 mg tablet 25 mg PO BID PRN (Reason: dizziness) Qty: 30 0RF polyethylene glycol 3350 17 gram/dose powder 17 g PO DAILY PRN (Reason: constipation) Qty: 119 11RF citalopram 40 mg tablet 40 mg PO DAILY Qty: 90 3RF diazepam 10 mg tablet 10 mg PO DAILY PRN (Reason: spasms) Qty: 20 0RF albuterol sulfate [Ventolin HFA] 90 mcg/actuation HFA aerosol inhaler 2 puff Inhalation Q6H PRN (Reason: shortness of breath or wheezing) Qty: 8.5 4RF ibuprofen 600 mg tablet 600 mg PO Q8H PRNQty: 30 0RF Discharge Instructions Instructions: Care For Your Stitches (ED), Finger Laceration (ED) Additional Instructions: At this time your laceration has been sutured. Please keep the area dry for the next 24 to 48 hours. Avoid picking at the knots as they can become undone. You may begin washing it very gently with soap and water as needed after 48 hours. Monitor closely for any redness or discharge or streaking which could represent infection. Please return in the next 7 to 10 days to have your sutures removed. If you notice any worsening of your symptoms, or any new symptoms such as vomiting, diarrhea, fever, chills, shortness of breath, chest pain, numbness, weakness, or fainting , please return immediately to the emergency department for reevaluation. Please follow up with your primary care provider as soon as possible for reassessment and reevaluation. As always, it was a pleasure participating in your medical care today. Referrals: Huma Hu NP [Primary Care Provider] - Medical Decision Making 57-year-old female presents today for laceration of her left index finger. Patient is right-hand dominant. Patient states that about an hour or so ago she was cutting up butter when the knife slipped and cut her finger. She came to the ER to have it sutured. She states that her tetanus is up-to-date. She denies denies being mirna. She states that it was a clean knife otherwise. She denies any new numbness or tingling aside for some tingling and pain at the very tip of the finger. No weakness. She is not on blood thinners. No other complaints at this time. M demonstrates a 1 cm linear laceration at the tip of the left index finger at the distal aspect over the pad of the finger. Good flexion and extension. Normal sensation aside for slight diminishment of sensation of the distal tip. No evidence of significant neurovascular compromise otherwise. The area was cleaned, anesthetized, and then 4 simple interrupted sutures were placed with 4-0 nylon. Patient tolerated this well. Discussed red flags for which to return. I have extensively reviewed the treatment plan and discharge instructions with the patient. I have addressed all patient concerns at this time. The patient was made aware of what symptoms to monitor for that would warrant a return to the emergency department. Discussed the plan with the patient, they demonstrate verbal understanding and agreement with our assessment and plan at this time. The documentation in this chart was dictated using [employer] dictation software. Please excuse any dictation errors. HPI General Date/Time Provider Initiated Documentation: 08/07/22 23:03. HPI Narrative: 57-year-old female presents today for laceration of her left index finger. Patient is right-hand dominant. Patient states that about an hour or so ago she was cutting up butter when the knife slipped and cut her finger. She came to the ER to have it sutured. She states that her tetanus is up-to-date. She denies denies being mirna. She states that it was a clean knife otherwise. She denies any new numbness or tingling aside for some tingling and pain at the very tip of the finger. No weakness. She is not on blood thinners. No other complaints at this time. Related Data Home Medications Medication Instructions Recorded Confirmed vitamin B complex 1 ea PO DAILY 10/07/12 07/03/22 inhalational spacing device ##1 08/06/17 07/03/22 (Aerochamber Plus Flow-Vu) Lactobacillus 1 cap PO DAILY 10/16/18 07/03/22 acidophilus-Bifidobac.animalis 2.5 billion cell capsule (Daily Probiotic) cholecalciferol (vitamin D3) 10 400 unit PO DAILY 10/16/18 07/03/22 mcg (400 unit) capsule fluticasone propionate 50 2 spray NS DAILY PRN 09/07/19 07/03/22 mcg/actuation nasal spray,suspension ibuprofen 600 mg tablet 600 mg PO Q8H PRN #30 tabs 10/27/19 07/03/22 meclizine 25 mg tablet 25 mg PO BID PRN dizziness #30 tabs 11/01/20 07/03/22 acetaminophen 500 mg capsule 1,000 mg PO DAILY 06/06/21 07/03/22 naproxen sodium 220 mg tablet 440 mg PO DAILY 06/06/21 07/03/22 (Aleve) pravastatin 40 mg tablet 40 mg PO DAILY #90 tabs 06/06/21 07/03/22 baclofen 10 mg tablet 10 mg PO TID PRN muscle spasm #90 08/31/21 07/03/22 tabs clotrimazole 1 % topical cream 1 applic topical BID #45 grams 10/26/21 07/03/22 estradiol 10 mcg vaginal tablet 10 mcg vaginal DAILY #26 ea 10/26/21 07/03/22 (Vagifem) polyethylene glycol 3350 17 17 g PO DAILY PRN constipation 11/08/21 07/03/22 gram/dose oral powder #119 grams citalopram 40 mg tablet 40 mg PO DAILY #90 tabs 07/16/22 diazepam 10 mg tablet 10 mg PO DAILY PRN spasms #20 tabs 07/27/22 albuterol sulfate 90 mcg/actuation 2 puff inhalation Q6H PRN 08/01/22 aerosol inhaler (Ventolin HFA) shortness of breath or wheezing #8.5 grams Previous Rx's Medication Instructions Recorded inhalational spacing device ##1 08/06/17 (Aerochamber Plus Flow-Vu) ibuprofen 600 mg tablet 600 mg PO Q8H PRN #30 tabs 10/27/19 meclizine 25 mg tablet 25 mg PO BID PRN dizziness #30 tabs 11/01/20 pravastatin 40 mg tablet 40 mg PO DAILY #90 tabs 06/06/21 baclofen 10 mg tablet 10 mg PO TID PRN muscle spasm #90 08/31/21 tabs clotrimazole 1 % topical cream 1 applic topical BID #45 grams 10/26/21 estradiol 10 mcg vaginal tablet 10 mcg vaginal DAILY #26 ea 10/26/21 (Vagifem) polyethylene glycol 3350 17 17 g PO DAILY PRN constipation 11/08/21 gram/dose oral powder #119 grams citalopram 40 mg tablet 40 mg PO DAILY #90 tabs 07/16/22 diazepam 10 mg tablet 10 mg PO DAILY PRN spasms #20 tabs 07/27/22 albuterol sulfate 90 mcg/actuation 2 puff inhalation Q6H PRN 08/01/22 aerosol inhaler (Ventolin HFA) shortness of breath or wheezing #8.5 grams Allergies Allergy/AdvReac Type Severity Reaction Status Date / Time amoxicillin Allergy HIVES Verified 07/03/22 09:11 clavulanic acid Allergy HIVES Verified 07/03/22 09:11 levofloxacin Allergy RASH Verified 07/03/22 09:11 Penicillins Allergy HIVES Verified 07/03/22 09:11 imipramine AdvReac Intermediate Palpitations, Verified 07/03/22 09:11 slurred speech ondansetron AdvReac constipation. Verified 07/03/22 09:11 Hallucinations in combination with meclizine VENLAFAXINE AdvReac Unknown Unknown Uncoded 07/03/22 09:11 General HAMILTON: 3 Review of Systems All systems reviewed & are unremarkable except as noted in HPI and below PFSH All Active Problems Laceration of left index finger (Acute) Impingement syndrome of both shoulders (Acute) Bilateral shoulder bursitis (Acute) Tendinitis of long head of biceps brachii of both shoulders (Acute) Left rotator cuff tear (Acute) Right rotator cuff tear (Acute) Major depressive disorder, recurrent (Chronic) Generalized anxiety disorder (Chronic) Bilateral shoulder pain (Chronic) Lumbar back pain with radiculopathy affecting lower extremity (Chronic) Mild intermittent asthma (Chronic) Fibromyalgia (Chronic) Hyperlipidemia (Chronic) Prediabetes (Chronic) ASCUS with positive high risk HPV (Chronic) Sigmoid diverticulosis (Chronic) Rosacea (Chronic) Medical History COVID-19 (~09/21/21) 08/2021 History of tobacco use HPV (human papilloma virus) anogenital infection Overactive bladder Pulmonary tuberculosis Surgical History History of bilateral tubal ligation S/P section S/P colonoscopy (11/23/16) Family History Mother Depression Hypothyroidism Asthma Diabetes Rheumatoid arthritis Father , at 88 from [place] Essential hypertension Heart disease Pulmonary emphysema Myocardial infarction Colon cancer 50s Sister Essential hypertension Depression Brother Alcohol abuse Brother No problems noted. Brother Alcohol abuse Myocardial infarction Stroke Asthma Heart disease Brother Alcohol abuse Depression Asthma Heart disease Brother No problems noted. Brother Sleep apnea Diabetes Essential hypertension Depression Heart disease Son No problems noted. Daughter Depression Asthma Daughter Depression Maternal Grandfather Asthma Pulmonary emphysema Maternal Grandmother Diabetes Rheumatoid arthritis Paternal Grandfather Hypertension Myocardial infarction Paternal Grandmother No problems noted. 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[employer] Pets and animals: Yes Pets and animals: dog(s) and guinea pig(s) Sexually active: Yes Do you think of yourself as: straight/heterosexual Current gender identity: female What is your relationship status?: How often do you talk on the phone with friends or family?: twice per week How often do you get together with friends or relatives?: once per week How often do you attend roman catholic or yarsani services?: 1-3 times per year Do you belong to any clubs or organized social groups?: no Panel score (0-1 are the most socially isolated patients): 2 What type of physical activity do you participate in: walking Duration: 45-60 minutes/day Frequency: 3-4 times per week Gayatri/Rastafari: Orthodoxy Special gayatri needs: No Seatbelt use: always Drive intox or ride w/intox 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 3.ENT: Atraumatic external nose and ears. Moist MM. Neck: Symmetric, trachea midline, No thyromegaly. 4.CVS: +S1/S2, No murmurs or gallops. Peripheral pulses 2+ and equal in all extremities. Brisk capillary refill in all extremities. 5.RESP: Unlabored respiratory effort. Clear to auscultation bilaterally. No wheezes rales or rhonchi 6.GI: Soft, Nontender/Nondistended, No hepatosplenomegaly. No guarding or rebound. 7.MSK: Normocephalic/Atraumatic, Extremities w/o deformity or ttp No cyanosis or clubbing, Normal movement of all extremities. Left index finger demonstrates normal flexion and extension. Brisk distal capillary refill. No evidence of neurovascular deficit. Slight tingling at the tip of the finger. 8.Skin: Warm, Dry. No rashes or lesions. 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 Sensation grossly intac aside for slight tingling at the tip of the finger, no focal neurologic deficits. 10.Psych: (AAO) x3. Appropriate mood and affect Procedures Laceration Laceration 1: Site: hand Side (If applicable): left Size (cm): 1 Description: linear Depth: simple, single layer Local Anesthetic: Lidocaine 1% Amount of anesthesia used (mL): 4 Pre-repair: wound explored, irrigated extensively and deep structures intact Skin layer closed with: nylon Size (cm): 4-0 Number of sutures: 4 Technique: simple, interrupted
[2022-08-07 23:35] VITALS: BP 129/72; PULSE 81; RESP 16; O2SAT 99
== END 2022-08-07 23:47 | disposition home or self-care (01) ==
PROVIDERS: Emergency Provider Student in an Organized Health Care Education/Training Program; PCP Nurse Practitioner Family
DX: S61.211A Laceration without foreign body of left index finger without damage to nail, initial encounter (principal); W26.0XXA Contact with knife, initial encounter
CPT/HCPCS: 12001

== ENCOUNTER 2022-09-14 06:22 | Day surgery (SDC) | payer MEDICAID, SELFPAY ==
--- NOTE | 2022-09-13 17:21 | W.ANESPRE ---
General Info Date of Service Date Performed: 09/14/22 Height: 5 ft 1 in Weight: 74 kg Body Mass Index (BMI): 30.8 Surgical Procedure: Operation Date: 09/14/22 07:40 Proposed Procedure Side Surgeon p Shoulder Rotator Cuff Arthroscopic,Extensive Debridement, Biceps Tenodesis, Subacromial Decompression Right Prem Dutton MD Meds Allergies and Home Medications Allergies Allergy/AdvReac Type Severity Reaction Status Date / Time amoxicillin Allergy HIVES Verified 09/14/22 06:48 clavulanic acid Allergy HIVES Verified 09/14/22 06:48 levofloxacin Allergy RASH Verified 09/14/22 06:48 Penicillins Allergy HIVES Verified 09/14/22 06:48 imipramine AdvReac Intermediate Palpitations, Verified 09/14/22 06:48 slurred speech gabapentin AdvReac saw Verified 09/14/22 06:49 shadows, hallucinations ondansetron AdvReac constipation. Verified 09/14/22 06:48 Hallucinations in combination with meclizine VENLAFAXINE AdvReac Unknown Unknown Uncoded 09/14/22 06:48 Home Medication Medication Instructions Recorded vitamin B complex 1 ea PO DAILY 10/07/12 inhalational spacing device ##1 08/06/17 (Aerochamber Plus Flow-Vu) Lactobacillus 1 cap PO DAILY 10/16/18 acidophilus-Bifidobac.animalis 2.5 billion cell capsule (Daily Probiotic) cholecalciferol (vitamin D3) 10 400 unit PO DAILY 10/16/18 mcg (400 unit) capsule fluticasone propionate 50 2 spray NS DAILY PRN 09/07/19 mcg/actuation nasal spray,suspension ibuprofen 600 mg tablet 600 mg PO Q8H PRN #30 tabs 10/27/19 meclizine 25 mg tablet 25 mg PO BID PRN dizziness #30 tabs 11/01/20 acetaminophen 500 mg capsule 1,000 mg PO DAILY 06/06/21 naproxen sodium 220 mg tablet 440 mg PO DAILY 06/06/21 (Aleve) baclofen 10 mg tablet 10 mg PO TID PRN muscle spasm #90 08/31/21 tabs clotrimazole 1 % topical cream 1 applic topical BID #45 grams 10/26/21 estradiol 10 mcg vaginal tablet 10 mcg vaginal DAILY #26 ea 10/26/21 (Vagifem) polyethylene glycol 3350 17 17 g PO DAILY PRN constipation 11/08/21 gram/dose oral powder #119 grams citalopram 40 mg tablet 40 mg PO DAILY #90 tabs 07/16/22 diazepam 10 mg tablet 10 mg PO DAILY PRN spasms #20 tabs 07/27/22 albuterol sulfate 90 mcg/actuation 2 puff inhalation Q6H PRN 08/01/22 aerosol inhaler (Ventolin HFA) shortness of breath or wheezing #8.5 grams pravastatin 40 mg tablet 40 mg PO DAILY #90 tabs 08/16/22 Current Visit Medications: Current Medications Generic Name Dose Route Start Last Admin Trade Name Freq PRN Reason Stop Dose Admin Ringer's Solution 1,000 mls @ 30 mls/hr 09/14/22 06:00 IV 09/14/22 16:00 INFUSION SALINA Cefazolin Sodium/Dextrose 2 gm in 50 mls @ 100 mls/hr 09/14/22 06:00 Ancef Duplex IVPB 09/14/22 23:59 PREOP SALINA IV Miscellaneous Supplies 1 each 09/14/22 06:00 Iv Access IV 09/14/22 23:59 DIRECTED SALINA Sodium Chloride 0 ml 09/14/22 06:00 Normal Saline Flush 10 Ml Syr IV 09/14/22 23:59 PRN PRN Sodium Chloride 0 ml 09/14/22 06:00 Normal Saline 10 Ml Vial IJ 09/14/22 23:59 DIRECTED PRN Sterile Water 0 ml 09/14/22 06:00 Water,Injection,Sterile 10 Ml Vial IJ 09/14/22 23:59 DIRECTED PRN PFSH Active Problems Active Problems: Problem Status Onset Code Impingement syndrome of both shoulders M75.41, M75.42 Bilateral shoulder bursitis M75.51, M75.52 Tendinitis of long head of biceps brachii of both shoulders M75.21, M75.22 Left rotator cuff tear M75.102 Right rotator cuff tear M75.101 Major depressive disorder, recurrent F33.9 Generalized anxiety disorder F41.1 Bilateral shoulder pain M25.511, M25.512 Lumbar back pain with radiculopathy affecting lower extremity M54.16 Mild intermittent asthma J45.20 Fibromyalgia M79.7 Hyperlipidemia E78.5 Prediabetes R73.03 ASCUS with positive high risk HPV Sigmoid diverticulosis K57.30 Rosacea L71.9 Medical History Medical History COVID-19 (~09/21/21) 08/2021 History of tobacco use HPV (human papilloma virus) anogenital infection Overactive bladder Pulmonary tuberculosis Surgical History Surgical History History of bilateral tubal ligation S/P section S/P colonoscopy (11/23/16) Tobacco Smoking/Tobacco Use Status: Former Tobacco Use Passive smoking exposure: Yes Second hand exposure: Yes Alcohol Alcohol Intake: current Alcohol intake frequency: holidays/special occasions only Alcohol type: beer Substance Use Substance use: Never Substance use type: prescription drug Prental History History 4 Para 3 Hx # Term Pregnancies Multiple births Hx # Pregnancies Ectopic pregnancies AB induced Hx Number of Living Children AB spontaneous Vital Signs and Lab Results Vital Signs Most Recent Vital Signs in EMR: Temp Pulse Resp BP Pulse Ox 36.4 C L 74 18 107/68 100 09/14/22 06:23 09/14/22 06:23 09/14/22 06:23 09/14/22 06:23 09/14/22 06:23 Lab Results Blood Type / Crossmatch: No Data to Display Complete Blood Count: No Data to Display Complete Metabolic Panel: No Data to Display Liver Function Panel: No Data to Display Coagulation Panel: No Data to Display Cardiac Panel: No Data to Display Arterial Blood Gas: No Data to Display Venous Blood Gas: No Data to Display Pancreas Panel: No Data to Display Thyroid Panel: No Data to Display Infectious Disease: No Data to Display Blood Cultures: No Data to Display Toxicology Panel: No Data to Display Anesthesia Assessment and Plan Anesthesia History Personal History: No History of Anesthesia Complications Family History: No Family History of Anesthesia Complications Exercise Tolerance Exercise Tolerance: Metabolic Equivalents>4 Cardiac & Pulmonary Exam Cardiac Exam: Normal S1/S2 Heart Sounds Pulmonary Exam: Clear Bilateral Breath Sounds Implantable Cardiac Device Does patient have a Pacemaker or an ICD?: No Airway Exam Known Difficult Airway: No Mallampati Class: 2 Mouth Opening: Normal (> 3cm) Thyromental Distance: Greater than 3 cm Neck Range of Motion: Full ROM Neck Circumference: Normal Teeth Condition: Normal Dentition ASA Classification ASA Score: ASA 2 Emergency Case?: No NPO Status NPO Status: NPO Clears >2 hours, Solids >8 hours Anesthesia Plan Resuscitation Status: Full Code Anesthesia Technique: General Anesthesia Airway Planned: Endotracheal Tube Pain Management: Surgeon and patient request nerve block Monitors Used: Standard Monitors Preoperative Comments:: 57 yo female for right shoulder scope. Pert allergy: ondansetron (hallucinations) Sig PMHx: depression/anxiety, fibromyalgia, preDM, mild asthma (albuterol), former smoker, occ EtOH, Previous Anes: - hysteroscopy with prop/natural airway, no issues. - colo with fen/midz, prop. - colo ? with mod sedation which lead to a chipped tooth and bruised jaw.
[2022-09-14] VITALS (10 sets, daily range): BP systolic 72–107; BP diastolic 30–68; PULSE 64–81; RESP 15–24; TEMP 36.4–36.6; O2SAT 96–100; BMI 30.8
[2022-09-14] MEDS: Lactated Ringers 1,000 ML 30 ML IV (06:50)
--- NOTE | 2022-09-14 07:10 | W.PM.DSUDISC ---
Date of service: 09/14/22 Time of Service: 13:00 Discharge Plan Discharge Details Attending Provider: Prem Dutton Primary Care Provider: Huma Hu Home Meds and New Rx's Prescriptions: New aspirin 81 mg tablet,delayed release (DR/EC) 81 mg PO DAILY 7 Days Qty: 7 0RF naproxen 250 mg tablet 250 - 500 mg PO BID PRNQty: 40 0RF Rx Instructions: take with a meal oxycodone 5 mg tablet 5 - 10 mg PO Q4H MDD 30 mg PRN (Reason: moderate to severe pain) Qty: 18 0RF Continued baclofen 10 mg tablet 10 mg PO TID PRN (Reason: muscle spasm) Qty: 90 4RF cholecalciferol (vitamin D3) 400 unit capsule 400 unit PO DAILY Daily Probiotic 2.5 billion cell capsule 1 cap PO DAILY fluticasone propionate 50 mcg/actuation spray,suspension 2 spray NS DAILY PRN acetaminophen 500 mg capsule 1,000 mg PO DAILY clotrimazole 1 % cream 1 applic topical BID Qty: 45 0RF Rx Instructions: Apply to affected areas twice a day for 2-4wks estradiol [Vagifem] 10 mcg tablet 10 mcg VG DAILY Qty: 26 4RF Rx Instructions: Use 1 tab in the vagina daily for 2 weeks, then twice weekly vitamin B complex 1 EACH tablet 1 ea PO DAILY (DME) Aerochamber Plus Flow-Vu 1 EACH spacer 1 ea Miscellaneous q 4 hours prn 30 Days Qty: 1 1RF meclizine 25 mg tablet 25 mg PO BID PRN (Reason: dizziness) Qty: 30 0RF polyethylene glycol 3350 17 gram/dose powder 17 g PO DAILY PRN (Reason: constipation) Qty: 119 11RF citalopram 40 mg tablet 40 mg PO DAILY Qty: 90 3RF diazepam 10 mg tablet 10 mg PO DAILY PRN (Reason: spasms) Qty: 20 0RF albuterol sulfate [Ventolin HFA] 90 mcg/actuation HFA aerosol inhaler 2 puff Inhalation Q6H PRN (Reason: shortness of breath or wheezing) Qty: 8.5 4RF pravastatin 40 mg tablet 40 mg PO DAILY Qty: 90 3RF Discontinued naproxen sodium [Aleve] 220 mg tablet 440 mg PO DAILY ibuprofen 600 mg tablet 600 mg PO Q8H PRNQty: 30 0RF Discharge Instructions Additional Instructions: Surgery: Right shoulder arthroscopy with rotator cuff repair (supraspinatus and partial infraspinatus), biceps tenodesis, extensive debridement, and subacromial decompression. Activity: For 6 weeks, you should keep your arm at your side in a neutral position at all times except for physical therapy. Do not try to lift or raise your arm using your own muscles. You should use the sling whenever you are out of the house. You may have to adjust the abduction pillow or remove it for comfort. At home it is best to remove the sling and rest the arm on a pillow at your side or support the operative side with your other hand. You may allow the arm to dangle at your side. A physical therapy prescription will be sent electronically to begin in about 3 weeks. STANDARD protocol. Prescriptions: Aspirin 81 mg take 1 daily to prevent a blood clot for 7 days Naproxen 250 mg take 1-2 every 12 hours with a meal as needed for moderate pain Oxycodone 5 mg take 1-2 every 4-6 hours as needed for severe pain You may use [id number] Tylenol (acetaminophen) as needed for mild pain. These pain medications may be taken all at once or in different combinations as needed. Also, recommend Colace (docusate) as a stool softener as surgery and pain medicine cause constipation. You may try [id number] diphenhydramine (Benadryl) 25-50 mg nightly as a sleep aid Dressings: Remove shoulder bandage after 3 days. Leave the sticky Steri-Strips in place until they fall off or remove them after you shower. Cover the incisions with Band-Aids or leave them open to air. You may shower after 5 days. Follow-up: 10-[address] Dutton You may take off the leg compression stockings this evening at home. You may also leave them on a few days longer if you have a history of leg swelling or edema. Let us know right away if you develop any redness, drainage, fevers, chest pain, or trouble breathing. Do not drink alcohol or drive for at least 24 hours after anesthesia. Please call the office during business hours with any questions or concerns. DS: Diagnosis Discharge Diagnosis (1) Right rotator cuff tear: Status: Acute
--- NOTE | 2022-09-14 07:16 | ROE_ITS ---
Date of service: 09/14/22 Time of Service: 08:00 Operative Note Operative Note DATE OF PROCEDURE: 09/14/22 PRE-OP DIAGNOSIS: Right: 1. Rotator cuff tear 2. LHB tendinopathy 3. Bursitis 4. Impingement POST-OP DIAGNOSIS: same PROCEDURE: Right: 1. Rotator cuff repair, CPT# 46656. This involved repair of the supraspinatus using anchors and sutures to reattach the rotator cuff back to the footprint of the [lesser and] greater tuberosity. 2. Arthroscopic biceps tenodesis, CPT# 79700. This involved arthroscopically suturing and reattaching the long head of the biceps tendon to the proximal humerus so that it would rest at the superior margin of the bicipital groove with a screw at the correct tension. 3. Extensive debridement, CPT# 96181. This involved using arthroscopic hand instruments, power instruments, and radiofrequency instruments to release the long head of the biceps tendon and debride areas of labral tearing, synovitis, and chondromalacia about the central glenoid, and release MGHL working within the glenohumeral joint anteriorly, superiorly and posteriorly. 4. Subacromial decompression, CPT# 76566. This involved using arthroscopic power instruments and a radiofrequency wand to complete a bursectomy. The veterinary technician assistant was medically required in order to help assist in techniques above, which require positioning the arm, holding the arthroscope, and manipulating multiple instruments and sutures at the same time. This cannot be done without the help of an experienced veterinary technician assistant. SURGEON: Prem Dutton MENTAL HEALTH PROGRAM DIRECTOR: Patria Bynum ANESTHESIA TYPE: General LMA/ETT and Primary Nerve Block Refer to Anesthesia Record ESTIMATED BLOOD LOSS: 5 PATHOLOGY: none sent COMPLICATIONS: None Patient was transported to: PACU Patient's condition: stable Implants: Arthrex: 4.75mm SwiveLocks x 4 Indications: The patient was diagnosed with the above conditions and appropriately indicated for surgical intervention. Please see complete medical record for details. Findings: Exam under anesthesia: Full range of motion, no instability Glenohumeral joint: Significant rotator interval, anterior, and superior synovitis. Unstable biceps anchor with displaced SLAP tear. Thickened [facility] L surrounded by synovitis. Intact subscapularis. High?grade near?complete somewhat medial trans-? tendinous supraspinatus rotator cuff tear. Intact infraspinatus footprint. Subacromial space: Mild bursitis. No significant acromial bone spur. Near?complete central supraspinatus rotator cuff tear with split between the supraspinatus and infraspinatus more medially and posteriorly. With debridement of a very thin bursal veil, there is a moderately large and degenerated supraspinatus rotator cuff tear with moderate retraction. Procedure Description: In the operating room, general anesthesia was induced. Bilateral shoulders were examined. The patient was positioned in the beachchair position. All bony prominences were well-padded. Preoperative antibiotics were administered. The shoulder was prepped and draped in the usual sterile fashion. The correct patient, procedure, and side of the procedure were all verified prior to incision. Starting through the posterior portal a standard complete diagnostic arthroscopy was performed of the glenohumeral joint including inspection of the long head of the biceps, anterior and superior labrum, subscapularis tendon, supraspinatus and infraspinatus tendons, and axillary recess. The glenoid and humeral head cartilage as well as the posterior labrum were inspected from an anterior viewing portal. Significant findings and interventions noted above. An all-arthroscopic suprapectoral biceps tenodesis was performed through an anterior portal using a Loop N Tack method with a SutureTape FiberLink cinched around and through the tendon. The biceps was tenotomized from the labrum and sutures were withdrawn out the anterior portal for later fixation with the anterior medial row supraspinatus suture anchor. The unstable biceps anchor SLAP tear was debrided and reduced to a stable margin. The exposed majority supraspinatus footprint was inspected and prepared from inside the joint. A needle was placed from lateral through the subacromial space through the central aspect of the tear visualized from in the joint. The camera was redirected into the subacromial space and the needle was adjacent to a very thin veil of remnant bursal supraspinatus tissue that was about midway from the medial to the lateral footprint. A Asndy cannula was then inserted laterally at the 50 yard line portal. An elevator was used to lift as much lateral and intact supraspinatus tissue as possible off the greater tuberosity to preserve length for repair which was readily exposed a moderate crescent supraspinatus tear with a more medial high?grade split longitudinally between the supraspinatus and infraspinatus. A Sandy cannula was inserted at the posterior superior lateral portal. The anterior rigid cannula was redirected into the subacromial space. Various hand instruments, rest, elevators, and mechanical shaver were used to thoroughly debride the rotator cuff to a stable healthy tissue margin as well as prepare the greater tuberosity footprint thoroughly to optimize bone and tendon healing. A combination of power instruments and a radiofrequency ablator were used to debride bursitis anteriorly, posteriorly, and laterally as well as expose the undersurface of the acromion. The coracoacromial ligament was preserved and there was no subacromial bone spur impingement requiring bone resection. Rotator cuff reduction with grasper and arm position were confirmed prior to proceeding with repair. The biceps tenodesis repair suture was then retrieved through the crescent tear. The punch was used to localize and then a 4.75 mm SwiveLock anchor deployed flush with the prepared bone at the anterior and medial margin of the tear and greater tuberosity loaded with FiberTape and the biceps te nodesis suture with appropriate tension on the biceps tenodesis allowing the stump to rest intra-articular in the corresponding tendon at its normal position at the superior aspect of the bicipital groove. The biceps tenodesis was appropriate. The fiber tapes were brought out the anterior portal for later shuttling. Through the posterior superior lateral portal the punch was used to localize and prepare for placement of a knotless 4.75 mm SwiveLock anchor loaded with FiberTape's. This anchor was positioned slightly off the articular margin and at about the posterior aspect of the supraspinatus tear beneath the junction of the longitudinal tear between the supraspinatus and infraspinatus. The self retrieving suture passer was then used to shuttle the fiber tapes individually from this posterior anchor appropriately medially through the supraspinatus tissue incorporating better tissue fixation with cuff grasper confirming appropriate excursion and reduction direction and position over the tuberosity. The anterior FiberTape's were shuttled together using the self retrieving suture passer and a FiberLink. The knotless repair suture and shuttle sutures were then passed just lateral to the posterior FiberTape's in position for a side to side repair of the split tear between the supraspinatus infraspinatus as well as creating a somewhat horizontal ripstop stitch at the posterior aspect of the supraspinatus tear. A single FiberTape from the anterior and posterior medial row anchors was then brought out laterally, arm rotated, reduction and lateral anchor position confirmed through the rigid insert of the Sandy cannula. These tapes were then secured to an anterior lateral row 4.75 mm SwiveLock anchor. This was repeated completing the speed bridge configuration with the remaining tapes to a posterior lateral row SwiveLock anchor. The tear was inspected had excellent reduction and compression without undue tension across the majority of the greater tuberosity. The remaining cytocide split between the supraspinatus and infraspinatus was well opposed. The repair suture from the knotless mechanism was then shuttled through the anchor and moderate tension used to complete repair between the supraspinatus and infraspinatus. The shoulder was drained of arthroscopic fluid. All portal sites were copiously irrigated. These incisions were closed using 3-0 Monocryl in a buried fashion and then covered with Mastisol, Steri-Strips, Xeroform, dry gauze, and ABDs. The dressings were covered and secured with Medipore tape. The operative extremity was placed into a sling for immobilization. The patient awoke from anesthesia without complication and was transferred to the recovery room in a stable condition.
[2022-09-14] MEDS: ceFAZolin 2 GM/50 ML BAG IVPB (07:27)
--- NOTE | 2022-09-14 07:52 | W.ANESNERVE ---
Nerve Block Single Injection Procedure Date and Time Date Performed: 09/14/22 Procedure Start: 07:08 Location Where Procedure Performed Procedure Location: Day Surgery Unit Reason Performed: Postoperative Analgesia Requesting Provider: Prem Dutton Timeout Performed Timeout Performed: Yes Monitoring Used ECG, Blood Pressure and SpO2 Sterility Sterility: Hand Hygiene, Surgical Cap, Surgical Mask, Sterile Gloves and Chlorhexidine Sedation Given During Procedure Sedation Given (Indicate Dose Given): Versed IV Dose:: 2 mg Patient Mental Status Patient Mental Status: Sedate with meaningful communication Nerve Block 1st Nerve Block: Laterality: Right Block Type: Interscalene Ultrasound Image Saved?: Yes Needle / Catheter Used: 100mm SonoPlex II Local Anesthetic Bolus (Indicate Dose Given): Lidocaine used for local infiltration of skin, Injected in 3-5ml increments after negative blood aspiration, Bupivacaine 0.5% Dose:: 15 mL and Exparel Dose:: 10 mL Additives (Indicate Dose Given): None Ultrasound: Sterile probe cover and gel used Nerve Stimulator: Supplement to Ultrasound use and No twitch or parasthesia noted < 0.5 mA Paresthesia: None Procedure Tolerated: No Complications Procedure Outcome: Successful Performed By: Ezra Mccracken
[2022-09-14] MEDS: EPINEPHrine 30 MG/30 ML VIAL (09:23)
[2022-09-14] MEDS: Bupivacaine 0.5% Pres-Free 30 ML VIAL (09:34)
[2022-09-14] MEDS: HYDROmorphone 2 MG/ML SYR IVP ×2 (10:03→10:13)
[2022-09-14] MEDS: Normal Saline 10 ML VIAL IJ (10:03)
--- NOTE | 2022-09-14 10:21 | W.ANESPOSTOP ---
Postoperative Evaluation Date, Time and Location Date Performed: 09/14/22 Time Performed: 10:21 Patient Location: PACU Vital Signs Most Recent Imported Vital Signs: Most Recent Vital Signs Temp Pulse Resp BP Pulse Ox 36.6 C 70 17 93/49 L 100 09/14/22 09:50 09/14/22 10:00 09/14/22 10:00 09/14/22 10:00 09/14/22 10:00 Pain Score Most Recent Pain Score: Most Recent Pain Score Pain Level 0 09/14/22 07:08 Assessment Mental Status: Arousable with meaningful communication Airway and Respiratory Function: Patent airway with normal (patient baseline) respiratory exam Cardiovascular Function: Hemodynamically Stable Hydration Status: Adequately Hydrated Nausea & Vomiting: No Nausea or Vomiting Pain: Pain is Moderate or Severe (from shoulder down to hand, ? r/t fluid extravasation from scope) Postoperative Pain Management: Pain being addressed with medication Peripheral Nerve Block: Regional nerve block not resolved at time of post operative discharge
[2022-09-14] MEDS: ePHEDrine 25 MG/5 ML Syringe IVP ×2 (10:22→10:38)
[2022-09-14] MEDS: fentaNYL 100 MCG/2 ML VIAL IVP (10:24)
[2022-09-14] MEDS: oxyCODONE 5 MG TAB PO (11:19)
[2022-09-14] MEDS: Acetaminophen 500 MG TAB 1000 MG PO (12:28)
== END 2022-09-14 13:00 | disposition home or self-care (01) ==
PROVIDERS: PCP Nurse Practitioner Family; Visit Provider Student in an Organized Health Care Education/Training Program
PROC: (CPT 29827; principal; 2022-09-14 07:30)
DX: M75.101 Unspecified rotator cuff tear or rupture of right shoulder, not specified as traumatic (principal); M75.21 Bicipital tendinitis, right shoulder; M75.51 Bursitis of right shoulder; M75.41 Impingement syndrome of right shoulder
CPT/HCPCS: 29827; 29826; 29828; 76942; J0131; J0690; J1100; J1170; J1885; J2250; J2370; J2405; J2704; J3010

== ENCOUNTER 2022-11-09 11:53 | Outpatient (REF) | payer MEDICAID, SELFPAY ==
--- NOTE | 2022-11-09 11:00 | PAPFT_PTH ---
PATIENT: Carri Fermin LOC: [facility] U#:[id number] AGE/SX: 57/F ROOM: RE11/09/[address]: Syeda Devine DO : 1965 BED: DIS: 11/09/2022 SPEC #: [id number] RECD: 11/09/22 13:09 STATUS: ARNALDO REQ #: [id number] YAMILKA: 11/09/22 11:[address]: Syeda Devine [facility] Cytology RECD BY: Ayaka Vital ENTERED: 11/09/22 13:09 SP TYPE: PAPFT OTHR DR: Huma Hu, PERSONAL SECURITY SPECIALIST Tissues: 1 - CX/ENDOCX FOR PAP SMEARS Procedures: PAP THIN PREP/UVM Screening HPV DNA PROBE Comments: [id number] (HPV 16 & 18/45)
== END 2022-11-09 11:54 | disposition home or self-care (01) ==
LOC: LBN 11:53
PROVIDERS: PCP Nurse Practitioner Family; Visit Provider Obstetrics & Gynecology
DX: Z12.4 Encounter for screening for malignant neoplasm of cervix (principal); Z11.51 Encounter for screening for human papillomavirus (HPV); R87.810 Cervical high risk human papillomavirus (HPV) DNA test positive
CPT/HCPCS: 88142; 87624

== ENCOUNTER 2022-12-06 01:46 | Outpatient (CLI) | payer MEDICAID, SELFPAY ==
--- NOTE | 2022-12-06 08:30 | DI.MRI_ITS ---
Exam(s) MR UPPER JOINT RT WO EXAM: MR UPPER JOINT RT WO CLINICAL HISTORY: persistent pain,rt rotator cuff tear,m75.101 TECHNIQUE: Multiplanar multisequence MRI of the shoulder was performed. COMPARISON: MR MR UPPER JOINT RT WO from 06/28/2022 MR MR UPPER JOINT LT WO from 06/28/2022 CR XR SHOULDER LT COMPLETE 2+V from 07/03/2022 CR XR SHOULDER RT COMPLETE 2+V from 07/03/2022 FINDINGS: MARROW:There has been interval rotator cuff surgery with multiple (4) fastener channels in the danny l head. There is no evidence of fracture, Hill-Sachs deformity, nor ominous osseous lesions. No evid ence of osteomyelitis. ROTATOR CUFF MECHANISM: AC JOINT/ACROMIUM: AC joint exhibits only mild degenerative.. There is no evidence of os acromiale. Supraspinatus: There is significant signal abnormality at the musculotendinous junction which collette es the thickness of the tendon consistent with significant full-thickness tear at this level. This i s just lateral to the mid humeral head level. There is no retraction of the musculotendinous junctio n. This signal abnormality is at the interval posterior aspect of supraspinatus tendon and anterior aspect of infraspinatus. There is some for mild fluid in the subacromial bursa. Infraspinatus: Some signal abnormality in the anterior insertional aspect. No full-thickness tear. Teres Minor: Intact. No evidence of tear nor muscle atrophy. Subscapularis/anterior cuff: Intact. No abnormal signal at the level of the multipennate insertional fibers. No significant tear nor atrophy. BICEPS TENDON: Not displaced from the intertubercular groove but exhibits some internal signal abnorm ality not evident on the prior study. Also significant signal abnormality along the course of the in tra-articular aspect consistent with tearing. Possible interval tenodesis. LABRUM: Biceps tendon is not seen attached to the anterosuperior labrum, as was previously the case. There is signal abnormality in the superior labrum posterior to the biceps insertion site. Consiste nt with some tearing of the superior labrum when compared to the prior study. The posterior labrum a ppears intact. Anterior labrum intact. Inferior labrum intact. Inferior glenohumeral ligament appe ars unchanged. GLENOHUMERAL JOINT: No significant joint effusion. No degenerative subarticular cysts. QUADRILATERAL SPACE: No evidence of mass in the region of the axillary nerve and dorsal circumflex hu meral vessels. Visualized triceps muscle at this level appears unremarkable. IMPRESSION: 1. Interval surgery. There is significance focal signal abnormality at the musculotendinous junction of the supraspinatus consistent with area of full-thickness tear. No retraction of the musculotendi nous junction. Mild increased signal in the infraspinatus. Anterior cuff-subscapularis appears inta ct. 2. Intrasubstance partial tearing of biceps tendon within the intertubercular groove. Tearing or princess gical absence of the intra-articular aspect of this tendon. 3. Some signal abnormality is noted in the superior labrum on the present study when compared to the prior study from June 2022. Remainder of the labrum appears intact. No evidence of paralabra l cyst. DATA REPOSITORY:
== END 2022-12-06 02:06 ==
LOC: DI 01:47
PROVIDERS: PCP Nurse Practitioner Family; Visit Provider Student in an Organized Health Care Education/Training Program
DX: M75.101 Unspecified rotator cuff tear or rupture of right shoulder, not specified as traumatic (principal)
CPT/HCPCS: 73221

== ENCOUNTER 2022-12-21 11:10 | Outpatient (REF) | payer MEDICAID, SELFPAY ==
--- NOTE | 2022-12-21 10:30 | ENDO_PTH ---
PATIENT: Carri Fermin LOC: [facility] U#:[id number] AGE/SX: 57/F ROOM: RE12/21/[address]: Syeda Devine DO : 1965 BED: DIS: 12/21/2022 SPEC #: [id number] RECD: 12/21/22 12:51 STATUS: ARNALDO RE #: [id number] YAMILKA: 12/21/22 10:[address]: Syeda Devine DEPT: Surgical Specimen RECD BY: Ayaka Vital ENTERED: 12/21/22 12:51 SP TYPE: Endo OTHR DR: MICHELLE Ashton Tissues: 1 - ENDOCERVICAL BX/CURRETTE Procedures: GROSS AND MICRO LEVEL 4 Comments: [id number]
== END 2022-12-21 11:11 | disposition home or self-care (01) ==
LOC: LBN 11:10
PROVIDERS: PCP Nurse Practitioner Family; Visit Provider Obstetrics & Gynecology
DX: N88.8 Other specified noninflammatory disorders of cervix uteri (principal); R87.810 Cervical high risk human papillomavirus (HPV) DNA test positive
CPT/HCPCS: 88305

== ENCOUNTER 2023-06-18 03:14 | Outpatient (CLI) | payer MEDICAID, SELFPAY ==
[2023-06-18 12:55] LABS: Absolute Basophil Count 0.03 10^3/uL (0.0-0.2); Absolute Eosinophil Count 0.15 10^3/uL (0.0-0.7); Absolute Lymphocyte Count 1.77 10^3/uL (1.2-3.4); Absolute Monocyte Count 0.31 10^3/uL (0.1-0.8); Absolute Neutrophil Count 2.97 10^3/uL (1.2-6.7); Basophils % 0.6; ESR 3 mm/hr (0-30); Eosinophils % 2.9; HGB 14.3 g/dL (11.2-15.7); Lymphocytes % 33.8; MCH 30.9 pg (27.0-33.0); MCV 91 fL (80-95); MPV 8.2 fL (8.0-11.0); Monocytes % 5.9; Neutrophils % 56.8; Platelet Count 298 10^3/uL (130-400); RBC 4.63 10^6/uL (3.93-5.22); RDW 12.8 % (11.7-14.6); RDW-SD 42.3 fL; WBC 5.23 10^3/uL (4.4-10.8)
[2023-06-18 13:13] LABS: Anion Gap 2.1 mmol/L (3-11); BUN 19 mg/dL (7-18); CO2 31.9 mmol/L (21.0-32.0); CREATININE 0.8 mg/dL (0.55-1.02); Calculated LDL 167 mg/dL (<100); Chloride 102 mmol/L (98-107); Cholesterol 279 mg/dL (<200); Estimated GFR 86.42 (mL/min/1.73m2); Glucose 115 mg/dL (74-106); HDL Cholesterol 82 mg/dL (40-60); Potassium 4.1 mmol/L (3.5-5.1); Sodium 136 mmol/L (136-145); Triglyceride 153 mg/dL (<150)
[2023-06-18 13:31] LABS: C-Reactive Protein 0.38 mg/dL (0.0-0.3)
[2023-06-20 09:54] LABS: Hepatitis C Ab w Rflx HCV PCR Negative (Negative)
== END 2023-06-18 03:15 | disposition home or self-care (01) ==
LOC: LBO 03:15
PROVIDERS: PCP Nurse Practitioner Family; Visit Provider Student in an Organized Health Care Education/Training Program
DX: Z00.00 Encounter for general adult medical examination without abnormal findings (principal); M75.101 Unspecified rotator cuff tear or rupture of right shoulder, not specified as traumatic
CPT/HCPCS: 36415; 80048; 80061; 85652; 86803; 85025; 86140

== ENCOUNTER → 2023-07-15 01:19 | Outpatient (CLI) | payer MEDICAID, SELFPAY ==
--- NOTE | 2023-07-15 07:45 | DI.MAMMO_ITS ---
Exam(s) MAMMO SCREENING EXAM: MAMMO SCREENING CLINICAL HISTORY: screening,z12.39 TECHNIQUE: Bilateral full field digital CC and MLO mammographic images were obtained with 3D tomosyn thesis and utilizing computer aided detection (CAD). COMPARISON: Available for comparison. FINDINGS: Masses/Architectural Distortion: None seen. Microcalcifications: No suspicious pleomorphic-type are seen. Skin Thickening/Nipple Retraction: None. IMPRESSION: 1. No significant interval change with no specific features of malignancy noted. 2. Unless there is more urgent need, screening mammography is recommended, as per [employer] guidelines. BI-RADS Category 1 - Negative Breast Density - Category B - Scattered areas of fibroglandular density Breast density category C or D implies that the patient has dense breast tissue. Dense breast tissue is very common and is not abnormal but dense breast tissue can make it harder to find cancer on a ma mmogram. Also, dense breast tissue may increase their breast cancer risk. This information about the result of the mammogram report was provided to the patient to raise their awareness. Use this report when you speak with the patient about their risks for breast cancer, which includes their family hist ory. At that time, you may recommend for more screening tests (Ultrasound or MRI) as they might be us eful based on their risk. A negative radiographic report should not delay biopsy if a dominant or clinically suspicious mass is present. Up to ten percent of cancers are not identified on mammography. A negative report may reinforce clinical impression. Adenosis and dense breasts may obscure an underlying neoplasm. False positive reports average 6 to 10%. Patient will receive a letter notifying them of these results.
== END ==
PROVIDERS: PCP Nurse Practitioner Family; Visit Provider Nurse Practitioner Family
DX: Z12.31 Encounter for screening mammogram for malignant neoplasm of breast (principal)
CPT/HCPCS: 77063; 77067

== ENCOUNTER 2023-09-13 13:28 | Emergency (ER) | payer MEDICAID, SELFPAY ==
[2023-09-13 13:44] VITALS: BP 130/79; PULSE 86; RESP 16; TEMP 36.9; O2SAT 99
--- OUTSIDE RECORDS SUMMARY | 2023-09-13 13:44 | XMS_ITS | Continuity of Care Document ---
Author Name Unknown Organization [facility] Ambulatory Clinics Address [address] [place] [address] Care Team Providers Care Player Development Executive Name Role Phone GAGAN IBRAHIM NP Primary Care Physician Encounter [facility] NBR [id number] Date(s): 08/08/23 - 08/08/23 [facility] [address] [place] [address]- Encounter Diagnosis Right rotator cuff tear(Discharge Diagnosis) - 08/08/23 Discharge Disposition: Home or Self Care Attending Physician: Neymar Cottrell MD Referring Physician: GAGAN IBRAHIM NP Allergies, Adverse Reactions, Alerts Substance Reaction Severity Status penicillin Severe Active Problem List Condition Confirmation Course Effective Dates Status Health St [facility] Informant Right rotator cuff tear Confirmed Active Vital Signs Most recent to oldest [Reference Range]: 1 Peripheral Pulse Rate [60-100 bpm] 70 bp m (08/08/23 11:12 AM) Blood Pressure [90-140/60-90 mmHg] 128/7 4mmHg (08/08/23 11:12 AM) Mean Arterial Pressure, Cuff [70-110 mmH g] 92 mmHg (08/08/23 11:12 AM) Weight 154.94 kg (08/08/23 11:12 AM) Weight Measured (lbs) 341.584 lb (08/08/23 11:12 AM) Weight Dosing 154.940 kg (08/08/23 11:12 AM) Height 86.18 cm (08/08/23 11:12 AM) Height/Length Measured (inches) 33.93 in ch (08/08/23 11:12 AM) BSA Measured 1.93 m2 (08/08/23 11:12 AM) Body Mass Index 208.62 kg/m2 (08/08/23 11:12 AM) Social History Social History Type Response Tobacco Former tobacco user Tobacco Use:. 1 Sex 1quit 30+ years ago Physician Outpatient Note * Neymar Cottrell MD: PERFORM Event Display: Office Clinic Note Physician Authored Date: [id number] MARTÍN LEON :1965 Age:58 years Sex:Female Visit Date:08/08/2023 Primary Care Physician: GAGAN IBRAHIM NP Chief Complaint right shoulder pain History of Present Illness Prior to the patient's visit there was a 20-minute??record review including preop and postop MRIs??and??surgical report??the patient is a 58-year-old female who in August??2022??underwent a rotatorcuff repair at??[facility] by Dr. Dutton.?? Postoperatively the patient who does have a history of fibromyalgia??says she had??very severe pain??and even??when she came out of the sling 6 weeks later says her pain was greater after the surgery than before.?? He was sent to physical therapy and says she did work diligently on this,??but despite??doing months of therapy and regaining her range of motion??she has continued??to have pretty severe pain that is limiting the use of the right upper extremity.?? He had a repeat MRI performed??April??and was found to have a??recurrent tear,??however Dr. Dutton felt this was relatively small??and did not according to the patient recommend surgery??so patient comes in today to discuss her shoulder.?I should also note patient did have an infection workup which was negative Physical Exam Vitals & Measurements HR:??70??(Peripheral)?? BP:??128/74?? SpO2:??98%?? HT:??86.18??cm?? WT:??154.94??kg?? BMI:??208.62?? Pain Score:??8?? BSA:??1.93?? These:??X-rays are reviewed today and are negative,??the joint is well-preserved. Patient's postop MRI also is reviewed,??there is evidence of a small type II tear??with the tear having occurred at the??medial row??of the double row repair.?? So this is in essence at the muscle tendon junction.?? The tendon however is intact.?? The biceps??is in the bicipital groove where it was tenodesed and looks fine. ?? Both shoulders are examined. Range of motion of the shoulder is examined in the forward elevation, abduction, external rotation and internal rotation behind the back planes. External rotation is assessed both with the arm in neutral adduction and at 90 degrees of abduction. Similarly internal rotation is performed at 90 degrees of abduction and is compared with the contralateral side. Neer and Yeager impingement signs are examined. Strength is assessed in forward elevation, abduction, externaland internal rotation planes.?Cross-arm adduction test is examined. The shoulder is systematically palpated anteriorlyin the region of the coracoid process, the anterior joint line and bicipital groove. The AC joint is palpated. The greater tuberosity is palpated. The posterior joint line is palpated. [place] and active compression tests are performed. The supraspinatus and infraspinatus fossa are examined for signs of atrophy. Stability is test using the apprehension, relocation and Jerk Test. ?? Exam the right shoulder shows only 100 degrees of active elevation but 170 degrees of passive elevation,??incisions are clean and dry.?? Patient has??no worse than 4+ out of 5 strength external rotation, 4-5 strength internal Tatian.?? But only 3-5 strength to abduction.?? She has no evidence of glenohumeral instability. Procedure Procedure Title:?? _ shoulder corticosteroid injection. Procedure Method:??The skin overlying the posterior shoulder was cleaned and prepped in the usual sterile fashion using Betadine swabs x3. A 25-gauge 1.5- inch needle was advanced into the subacromialspace using a posterolateral approach. Aspiration was negative for blood or joint fluid.?40 mg of kenalog ??as well as??7 mL of 1% lidocaine were administered into the subacromial space without complication. The patient tolerated the procedure well.?? There was no bleeding. A sterile Band-Aid was placed over the injection site. ?? Following the injection the patient did note??significant improvement in her shoulder and now could??forward elevate to about 170 degrees. Assessment/Plan 1.??Right rotator cuff tear??M75.101 With a small type II recurrent rotator cuff tear but??patient did get??really good improvement fromher subacromial injection today some hoping??that the steroid kicks in??and with some??more strengthening??her shoulder will be acceptable to her,??if it does not she will let me know and I likely would refer her??to [facility]??to be evaluated to see if possible??patch augmentation of the cuff would be an option Ordered: Kenalog-40, 40 mg, Intra-articular, Once, First Dose: 08/08/23 11:47:00 EST, Stop Date: 08/08/23 11:47:00 EST, Physician Stop, Routine ?? Problem List/Past Medical History Ongoing Morbid obesity Right rotator cuff tear Historical No qualifying data Medications Kenalog-40, 40 mg, Intra-articular, Once Allergies penicillin Social History Electronic Cigarette/Vaping Electronic Cigarette Use: Never. Tobacco Former tobacco user Tobacco Use:.- Comments: quit 30+ years ago Electronically Signed on 08/08/23 11:47 AM Neymar Cottrell MD Patient Care team information Care Team Personnel Name: GAGAN IBRAHIM NP Position: No Access Member Role: Primary Care Physician Address: Address: [address] [place] [address]- Care Team Related Persons Name: DEAN JAMES Address: Home [address] [place] [id number]
--- OUTSIDE RECORDS SUMMARY | 2023-09-13 13:44 | XMS_ITS | Continuity of Care Document ---
Author Name Unknown Organization [facility] Ambulatory Clinics Address [address] [place] [address] Care Team Providers Care Bulk Filler Name Role Phone GAGAN IBRAHIM NP Primary Care Physician Encounter [facility] NBR [id number] Date(s): 08/01/23 - 08/01/23 [facility] Ambulatory Clin[facility] [address] [place] [address] [place] Discharge Disposition: Home Patient Care team information Care Team Personnel Name: GAGAN IBRAHIM NP Position: No Access Member Role: Primary Care Physician Address: Address: [address] [place] [id number] Care Team Related Persons Name: DEAN JAMES Address: Home [address] [place], [place] [id number]
--- OUTSIDE RECORDS SUMMARY | 2023-09-13 13:44 | XMS_ITS | Continuity of Care Document ---
Author Name Unknown Organization [facility] Ambulatory Clinics Address [address] [place] [address] Care Team Providers Care Tube And Rod Straightener Name Role Phone GAGAN IBRAHIM NP Primary Care Physician Encounter [facility] NBR [id number] Date(s): 08/01/23 - 08/01/23 [facility] Ambulatory Clinics [address] [place] [address] [place] Patient Care team information Care Team Personnel Name: GAGAN IBRAHIM NP Position: No Access Member Role: Primary Care Physician Address: Address: [address] [place] [id number] [place] Care Team Related Persons Name: DEAN JAMES Address: Home [address] [place], [place] [phone]
--- OUTSIDE RECORDS SUMMARY | 2023-09-13 13:44 | XMS_ITS | Continuity of Care Document ---
Author Name Unknown Organization [facility] Address [address] [place] [address] Care Team Providers Care Revenue Liaison Name Role Phone GAGAN IBRAHIM NP Primary Care Physician Encounter [facility] NBR [id number] Date(s): 08/08/23 - 08/08/23 [facility] [address] [place], [place] [id number]- [place] Encounter Diagnosis Pain in right shoulder(Final) - Discharge Disposition: Home or Self Care Attending Physician: Neymar Cottrell MD Admitting Physician: Neymar Cottrell MD Referring Physician: Neymar Cottrell MD Allergies, Adverse Reactions, Alerts Substance Reaction Severity Status penicillin Severe Active Problem List Condition Confirmation Course Effective Dates Status Health [facility] Informant Right rotator cuff tear Confirmed Active Results Radiology Reports * Exam Date Time Procedure Performing Provider Status 08/08/23 11:03 AM XR Shoulder Complete 2+ Views Right Vader, Estela; Auth (Verified) Notes: (XR Shoulder Complete 2+ Views Right) Reason For Exam: right shoulder pain XR Shoulder Complete 2+ Views Right EXAM DESCRIPTION: XR Shoulder Complete 2+ Views Right 08/08/2023 INDICATION: RIGHT SHOULDER PAIN COMPARISON: None IMPRESSION: No acute fracture or dislocation Mild AC joint arthritic changes with joint space narrowing No suspicious focal lytic or sclerotic lesion. JOB #: [id number] Final Signed by: Marco Null MD Signed (Electronic Signature): 08/08/2023 11:13 am Social History Social History Type Response Tobacco Former tobacco user Tobacco Use:. 1 Sex 1quit 30+ years ago Patient Care team information Care Team Personnel Name: GAGAN IBRAHIM NP Position: No Access Member Role: Primary Care Physician Address: Address: [address] [place] [address]- Care Team Related Persons Name: DEAN JAMES Address: Home [address] [place], [place] [id number]
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
== END 2023-09-13 15:24 | disposition home or self-care (01) ==
PROVIDERS: Emergency Provider Emergency Medicine; PCP Nurse Practitioner Family
DX: K59.00 Constipation, unspecified (principal)
CPT/HCPCS: 99283; J3490

== ENCOUNTER → 2023-09-25 01:55 | Outpatient (CLI) | payer MEDICAID, SELFPAY ==
--- NOTE | 2023-09-25 08:00 | DI.MRI_ITS ---
Exam(s) MR UPPER JOINT RT WO EXAM: MR UPPER JOINT RT WO CLINICAL HISTORY: R SHOULDER PAIN,rt rotator cuff tear,m75.101. TECHNIQUE: Multiplanar multisequence MRI was performed. COMPARISON: MR MR UPPER JOINT RT WO from 12/06/2022 FINDINGS: BONES: There is marrow edema seen in the humeral head particularly at its articular surface. There i s linear curvilinear hypointense signal seen in the humeral head beneath the articular surface. The finding is most suggestive of avascular necrosis. JOINTS: Mild degenerative changes are seen at the acromioclavicular joint. Mild degenerative changes are also seen at the glenohumeral joint with cartilage loss present. TENDONS: Findings of rotator cuff repair are noted. Supraspinatus: There is a gap in the supraspinatus tendon best appreciated on the coronal views (seri es 8001, image 12). It extends through the entire tendon. Infraspinatus: Unremarkable. Subscapularis: Unremarkable. Teres [place]: Unremarkable. Biceps and [place]: Unremarkable. MUSCLES: There is mild fatty atrophy of the supraspinatus muscle. GLENOID LABRUM: There is hyperintense signal seen in the superior labrum (series 6001, image 10). SOFT TISSUES: There is a small amount of fluid in the subcoracoid bursa. LIGAMENTS: Unremarkable. OTHER: There is a small amount of fluid seen in the subacromial subdeltoid bursa. IMPRESSION: 1. There is a gap seen in the supraspinatus tendon best appreciated on the coronal view consistent wi th a tear. 2. 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 3. Tear seen in the superior labrum (see series 6001, image 2010). 4. Findings of prior rotator cuff repair. 5. Please see the above discussion for complete details. DATA REPOSITORY:
== END ==
PROVIDERS: PCP Nurse Practitioner Family; Visit Provider Student in an Organized Health Care Education/Training Program
DX: M75.101 Unspecified rotator cuff tear or rupture of right shoulder, not specified as traumatic (principal)
CPT/HCPCS: 73221

== ENCOUNTER 2023-11-13 04:31 | Outpatient (CLI) | payer MEDICAID, SELFPAY ==
[2023-11-13 16:16] LABS: Calculated LDL 120 mg/dL (<100); Cholesterol 211 mg/dL (<200); HDL Cholesterol 78 mg/dL (40-60); Triglyceride 65 mg/dL (<150)
== END 2023-11-13 04:32 | disposition home or self-care (01) ==
LOC: LOS 04:31
PROVIDERS: PCP Nurse Practitioner Family; Visit Provider Nurse Practitioner Family
DX: E78.5 Hyperlipidemia, unspecified (principal)
CPT/HCPCS: 36415; 80061

== ENCOUNTER 2024-02-24 11:38 | Outpatient (REF) | payer MEDICAID, SELFPAY ==
--- NOTE | 2024-02-24 11:30 | PAPFT_PTH ---
PATIENT: Carri Fermin LOC: [facility] U#:[id number] AGE/SX: 58/F ROOM: RE02/24/[address]: Syeda Devine DO : 1965 BED: DIS: 02/24/2024 SPEC #: [id number] RECD: 02/24/24 13:06 STATUS: ARNALDO REBhakti #: [id number] YAMILKA: 02/24/24 11:[address]: Syeda Devine DEPT: [facility] Cytology RECD BY: Ayaka Vital ENTERED: 02/24/24 13:06 SP TYPE: PAPFT OTHR DR: Huma Hu, MANAGER MALL Tissues: 1 - CX/ENDOCX FOR PAP SMEARS Procedures: PAP THIN PREP/UVM Screening HPV DNA PROBE Comments: [id number] (HPV 16 & 18/45)
== END 2024-02-24 11:39 | disposition home or self-care (01) ==
LOC: LBN 11:38
PROVIDERS: PCP Nurse Practitioner Family; Visit Provider Obstetrics & Gynecology
DX: Z12.4 Encounter for screening for malignant neoplasm of cervix (principal)
CPT/HCPCS: 88142; 87624

== ENCOUNTER 2024-03-27 11:03 | Outpatient (REF) | payer MEDICAID, SELFPAY ==
--- NOTE | 2024-03-27 10:00 | ENDO_PTH ---
PATIENT: Carri Fermin LOC: [facility] U#:[id number] AGE/SX: 58/F ROOM: RE03/27/[address]: Syeda Devine DO : 1965 BED: DIS: 03/27/2024 SPEC #: [id number] RECD: 03/27/24 13:01 STATUS: ARNALDO REQ #: [id number] YAMILKA: 03/27/24 10:[address]: Syeda Devine DEPT: Surgical Specimen RECD BY: Ayaka Vital ENTERED: 03/27/24 13:01 SP TYPE: Endo OTHR DR: MICHELLE Ashton Tissues: 1 - ENDOCERVICAL BX/CURRETTE Procedures: GROSS AND MICRO LEVEL 4 Comments: [id number] (CREDITED, SPEC TO SCANT TO SURVIVE PROCESSING)
== END 2024-03-27 11:04 | disposition home or self-care (01) ==
LOC: LBN 11:03
PROVIDERS: PCP Nurse Practitioner Family; Visit Provider Obstetrics & Gynecology
CPT/HCPCS: 88305

== ENCOUNTER 2024-07-02 03:39 | Outpatient (CLI) | payer MEDICAID, SELFPAY ==
[2024-07-02 09:42] LABS: Abs Immature Grans 0.01 10^3/uL (0.0-0.06); Absolute Basophil Count 0.03 10^3/uL (0.0-0.2); Absolute Eosinophil Count 0.09 10^3/uL (0.0-0.7); Absolute Monocyte Count 0.44 10^3/uL (0.1-0.8); Absolute Neutrophil Count 2.37 10^3/uL (1.2-6.7); Basophils % 0.7 %; Eosinophils % 2.1 %; HCT 41.4 % (36.0-46.0); HGB 14.1 g/dL (11.2-15.7); Immature Grans % 0.2 %; Lymphocytes % 32.3 %; MCH 31.1 pg (27.0-33.0); MCHC 34.1 % (32.0-36.0); MCV 91 fL (80-95); Monocytes % 10.1 %; Neutrophils % 54.6 %; Platelet Count 284 10^3/uL (130-400); RBC 4.54 10^6/uL (3.93-5.22); RDW 12.9 % (11.7-14.6); WBC 4.34 10^3/uL (4.4-10.8)
[2024-07-02 09:57] LABS: Hemoglobin A1C 6.2 % (<5.7)
[2024-07-02 10:11] LABS: ALT 34 U/L (14-59); AST 17 U/L (15-37); Albumin 3.7 g/dL (3.4-5.0); Alkaline Phosphatase 71 U/L (46-116); Anion Gap 8.4 mmol/L (3-11); BUN 17 mg/dL (7-18); Bilirubin, Total 0.47 mg/dL (0.2-1.0); CO2 28.6 mmol/L (21.0-32.0); CREATININE 0.9 mg/dL (0.55-1.02); Calcium 9.2 mg/dL (8.5-10.1); Calculated LDL 151 mg/dL (<100); Chloride 103 mmol/L (98-107); Cholesterol 247 mg/dL (<200); Estimated GFR 74.57 (mL/min/1.73m2); Glucose 134 mg/dL (74-106); HDL Cholesterol 83 mg/dL (40-60); Potassium 4.3 mmol/L (3.5-5.1); Sodium 140 mmol/L (136-145); Total Protein 7.7 g/dL (6.4-8.2); Triglyceride 65 mg/dL (<150)
[2024-07-02 20:10] LABS: HIV-1/2 Ag & Ab Screen Negative (Negative)
[2024-07-02 20:13] LABS: HBs Antibody, Quant <3.1 mIU/mL (See Note); Hep B Surface Ab Negative (See Note); Hepatitis B Core Antibody Negative (Negative); Hepatitis B Surface Antigen Negative (Negative)
== END 2024-07-02 03:40 | disposition home or self-care (01) ==
PROVIDERS: PCP Nurse Practitioner Family; Visit Provider Nurse Practitioner Family
DX: Z00.00 Encounter for general adult medical examination without abnormal findings (principal); Z11.4 Encounter for screening for human immunodeficiency virus [HIV]; Z11.59 Encounter for screening for other viral diseases
CPT/HCPCS: 36415; 80053; 80061; 86704; 86706; 87340; 87389; 83036; 85025

== ENCOUNTER 2024-07-17 00:23 | Outpatient (CLI) | payer MEDICAID, SELFPAY ==
--- NOTE | 2024-07-17 11:45 | DI.MAMMO_ITS ---
Exam(s) MAMMO SCREENING EXAM: MAMMO SCREENING CLINICAL HISTORY: screening TECHNIQUE: Bilateral full field digital CC and MLO mammographic images were obtained with 3D tomosyn thesis and utilizing computer aided detection (CAD). COMPARISON: Available for comparison. FINDINGS: Masses/Architectural Distortion: None seen. Microcalcifications: No suspicious pleomorphic-type are seen. Skin Thickening/Nipple Retraction: None. IMPRESSION: 1. No significant interval change with no specific features of malignancy noted. 2. Unless there is more urgent need, screening mammography is recommended, as per [place] [employer] guidelines. BI-RADS Category 1 - Negative Breast Density - Category B - Scattered areas of fibroglandular density Breast density category C or D implies that the patient has dense breast tissue. Dense breast tissue is very common and is not abnormal but dense breast tissue can make it harder to find cancer on a ma mmogram. Also, dense breast tissue may increase their breast cancer risk. This information about the result of the mammogram report was provided to the patient to raise their awareness. Use this report when you speak with the patient about their risks for breast cancer, which includes their family hist ory. At that time, you may recommend for more screening tests (Ultrasound or MRI) as they might be us eful based on their risk. A negative radiographic report should not delay biopsy if a dominant or clinically suspicious mass is present. Up to ten percent of cancers are not identified on mammography. A negative report may reinforce clinical impression. Adenosis and dense breasts may obscure an underlying neoplasm. False positive reports average 6 to 10%. Patient will receive a letter notifying them of these results.
== END 2024-07-17 00:43 ==
LOC: DI 00:23
PROVIDERS: PCP Nurse Practitioner Family; Visit Provider Obstetrics & Gynecology
DX: Z12.31 Encounter for screening mammogram for malignant neoplasm of breast (principal); R92.323 Mammographic fibroglandular density, bilateral breasts
CPT/HCPCS: 77063; 77067

== ENCOUNTER 2025-04-15 04:05 | Outpatient (CLI) | payer MEDICAID, SELFPAY ==
--- NOTE | 2025-04-15 07:15 | DI.US_ITS ---
Exam(s) US PELVIS TRANSVAGINAL EXAM: US PELVIS TRANSVAGINAL CLINICAL HISTORY: Check endometrial stripe,postmenopausal bleeding,n95.0. TECHNIQUE: Transabdominal and transvaginal pelvic ultrasound was performed using standard protocol. COMPARISON: US US PELVIS TRANSVAGINAL from 11/03/2021 FINDINGS: UTERUS: Position: Anteverted. Size: 8.1 long by 3.9 AP by 5.0 transverse cm Endometrium: Up to 0.9 cm. This is thickened in this postmenopausal patient. Endometrial stripe is homogeneous. Myometrium: Unremarkable. Cervix: Unremarkable. OVARIES: Right: 2.5 x 1.1 x 1.4 cm Cyst or mass: No suspicious cystic or solid masses. Left: 2.6 x 1.8 x 2.1 cm Cyst or mass: No suspicious cystic or solid masses. CUL-DE-SAC: Free fluid: None. Other: None. IMPRESSION: 1. The endometrial stripe is thickened measuring up to 0.9 cm in this postmenopausal patient. The stripe is homogeneous and echogenic. No discrete mass is seen sonographically. 2. Unremarkable bilateral ovaries. DATA REPOSITORY:
== END 2025-04-15 04:25 ==
LOC: DI 04:05
PROVIDERS: PCP Nurse Practitioner Family; Visit Provider Obstetrics & Gynecology
DX: N95.0 Postmenopausal bleeding (principal)
CPT/HCPCS: 76830; 76856

== ENCOUNTER 2025-04-26 04:27 | Outpatient (CLI) | payer MEDICAID, SELFPAY ==
[2025-04-26 11:12] LABS: Abs Immature Grans 0.01 10^3/uL (0.0-0.06); HCT 42.3 % (36.0-46.0); HGB 14.4 g/dL (11.2-15.7); Immature Grans % 0.2 %; MCH 30.9 pg (27.0-33.0); MCHC 34.0 % (32.0-36.0); MCV 91 fL (80-95); MPV 8.1 fL (8.0-11.0); Platelet Count 321 10^3/uL (130-400); RBC 4.66 10^6/uL (3.93-5.22); RDW 12.4 % (11.7-14.6); RDW-SD 41.1 fL; WBC 4.89 10^3/uL (4.4-10.8)
== END 2025-04-26 04:28 | disposition home or self-care (01) ==
LOC: LBO 04:27
PROVIDERS: PCP Nurse Practitioner Family; Visit Provider Obstetrics & Gynecology
DX: Z01.818 Encounter for other preprocedural examination (principal)
CPT/HCPCS: 36415; 86850; 86900; 86901; 85025

== ENCOUNTER 2025-04-28 06:22 | Day surgery (SDC) | payer MEDICAID, SELFPAY ==
[2025-04-28] VITALS (17 sets, daily range): BP systolic 117–146; BP diastolic 56–86; PULSE 77–88; RESP 13–25; TEMP 36.1–36.6; O2SAT 94–99; BMI 36.8
[2025-04-28] MEDS: Lactated Ringers 1,000 ML 125 ML IV (06:40)
--- NOTE | 2025-04-28 07:21 | ANES.PREOP_ITS ---
General Info Date of Service Date Performed: 04/28/25 Height: 5 ft 1 in Weight: 88.5 kg Body Mass Index (BMI): 36.8 Surgical Procedure: Operation Date: 04/28/25 07:40 Proposed Procedure Side Surgeon p Dilation & Curettage with Hysteroscopy Syeda Devine DO Meds Allergies and Home Medications Allergies Allergy/AdvReac Type Severity Reaction Status Date / Time amoxicillin (From Augmentin) Allergy Intermediate Hives Verified 04/28/25 06:36 clavulanic acid (From Allergy Intermediate Hives Verified 04/28/25 06:36 Augmentin) levofloxacin Allergy RASH Verified 04/28/25 06:36 imipramine AdvReac Intermediate Palpitations, Verified 04/28/25 06:36 slurred speech rosuvastatin AdvReac Intermediate Myalgia Verified 04/28/25 06:36 gabapentin AdvReac saw Verified 04/28/25 06:36 shadows, hallucinations ondansetron AdvReac constipation. Verified 04/28/25 06:36 Hallucinations in combination with meclizine VENLAFAXINE AdvReac Unknown Unknown Uncoded 04/28/25 06:36 Home Medication ?Medication ?Instructions ?Recorded fluticasone propionate 50 2 spray intranasal DAILY PRN 06/12/23 mcg/actuation nasal allergy symptoms #16 grams spray,suspension (Flonase Allergy Relief) ibuprofen 600 mg tablet 600 mg PO TID 10/09/23 meloxicam 15 mg tablet 15 mg PO DAILY PRN pain #90 tabs 01/08/24 hydroxyzine HCl 25 mg tablet 25 mg PO Q8H PRN anxiety #30 tabs 06/15/24 pravastatin 80 mg tablet 80 mg PO DAILY #90 tabs 06/28 polyethylene glycol 3350 17 17 g PO DAILY PRN constipa tion 08/31/24 gram/dose oral powder (Miralax) #850 grams naltrexone 50 mg tablet 50 mg PO DAILY #30 tabs 11/27 08/22 phentermine 37.5 mg capsule 37.5 mg PO DAILY #30 caps 12/16/24 albuterol sulfate 90 mcg/actuation 2 puff inhalation Q 6H PRN 01/11/25 aerosol inhaler (Ventolin HFA) shortness of breath or wheezing #8.5 grams estradiol 0.01% (0.1 mg/gram) See Rx Instructions .Rou te 02/22/25 vaginal cream .COMPLEX #42.5 grams duloxetine 60 mg capsule,delayed 60 mg PO HS 04/26/25 release magnesium 30 mg tablet 30 mg PO QHS 04/28/25 Current Visit Medications: Current Medications Generic Name Dose Route Start Last Admin Trade Name Eric PRN Reason Stop Dose Admin Ringer's Solution 1,000 mls @ 125 mls/hr 04/28/25 06:00 IV 04/28/25 23:59 INFUSION SALINA IV Miscellaneous Supplies 1 each 04/28/25 06:00 Iv Access IV 04/28/25 23:59 DIRECTED SALINA Sodium Chloride 0 ml 04/28/25 06:00 Normal Saline Flush 10 Ml Syr IV 04/28/25 23:59 PRN PRN Sodium Chloride 0 ml 04/28/25 06:00 Normal Saline 10 Ml Vial IJ 04/28/25 23:59 DIRECTED PRN Sterile Water 0 ml 04/28/25 06:00 Water,Injection,Sterile 10 Ml Vial IJ 04/28/25 23:59 DIRECTED PRN PFSH Active Problems Active Problems: Problem Status Onset Code Endometrial thickening on ultrasound Acute R93.89 Postmenopausal bleeding Acute N95.0 High risk human papillomavirus (HPV) DNA test positive Acute R87.89 Addiction Acute F19.20 Obesity (BMI 30-39.9) Chronic E66.9 Asthma Chronic J45.909 Perimenopausal atrophic vaginitis Chronic N95.2 Left rotator cuff tear Chronic M75.102 Major depressive disorder, recurrent Chronic F33.9 ASCUS with positive high risk HPV Chronic Lumbar back pain with radiculopathy affecting lower extremity Chronic M54.16 Sigmoid diverticulosis Chronic K57.30 Generalized anxiety disorder Chronic F41.1 Fibromyalgia Chronic M79.7 Prediabetes Chronic R73.03 Rosacea Chronic L71.9 Hyperlipidemia Chronic E78.5 Medical History Medical History BPPV (benign paroxysmal positional vertigo) History of tobacco use HPV (human papilloma virus) anogenital infection Overactive bladder Pulmonary tuberculosis 1996 Medical History Comments:: pt. 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 Marijuana: last usage 12 years Prental History History 4 Para 3 Hx # Term Pregnancies Multiple births Hx # Pregnancies Ectopic pregnancies AB induced Hx Number of Living Children AB spontaneous Vital Signs and Lab Results Vital Signs Most Recent Vital Signs in EMR: Most Recent Vital Signs Temp Pulse Resp BP Pulse Ox 36.4 C L 87 18 121/56 L 98 04/28/25 06:46 04/28/25 06:46 04/28/25 06:46 04/28/25 06:46 04/28/25 06:46 Lab Results Blood Type / Crossmatch: Antibody Screen NEGATIVE 04/26/25 Complete Blood Count: WBC, (4.4-10.8) 4.89 10^3/uL 04/26/25, 11:02 RBC, (3.93-5.22) 4.66 10^6/uL 04/26/25, 11:02 Hgb, (11.2-15.7) 14.4 g/dL 04/26/25, 11:02 Hct, (36.0-46.0) 42.3 % 04/26/25, 11:02 Plt Count, (130-400) 321 10^3/uL 04/26/25, 11:02 Anesthesia Assessment and Plan Anesthesia History Personal History: No History of Anesthesia Complications Family History: No Family History of Anesthesia Complications Exercise Tolerance Exercise Tolerance: Metabolic Equivalents>4 Pertinent Negatives Pertinent Negatives: No Symptoms of GERD Cardiac & Pulmonary Exam Cardiac Exam: Normal S1/S2 Heart Sounds Pulmonary Exam: Clear Bilateral Breath Sounds Implantable Cardiac Device Does patient have a Pacemaker or an ICD?: No Airway Exam Known Difficult Airway: No Mallampati Class: 2 Mouth Opening: Normal (> 3cm) Thyromental Distance: Greater than 3 cm Neck Range of Motion: Full ROM Neck Circumference: Normal Teeth Condition: Normal Dentition ASA Classification ASA Score: ASA 2 Emergency Case?: No NPO Status NPO Status: NPO Clears >2 hours, Solids >8 hours Anesthesia Plan Resuscitation Status: Full Code Anesthesia Technique: General Anesthesia Airway Planned: LMA Monitors Used: Standard Monitors Preoperative Comments:: Last dose of Phentermine was March 16. Lawanda Yeager CRNA
--- NOTE | 2025-04-28 08:03 | ENDO_PTH ---
PATIENT: Carri Fermin LOC: [facility] U#:[id number] AGE/SX: 60/F ROOM: RE04/28/[address]: Syeda Devine DO : 1965 BED: DIS: 04/28/2025 SPEC #: [id number] RECD: 04/28/25 12:31 STATUS: ARNALDO RE #: [id number] YAMILKA: 04/28/25 08:[address]: Syeda Devine DEPT: Surgical Specimen RECD BY: Ayaka Vital ENTERED: 04/28/25 12:32 SP TYPE: Endo OTHR DR: MICHELLE Ashton Tissues: 1 - ENDOCERVICAL BX/CURRETTE 2 - ENDOMETRIUM BX/CURRETTE Procedures: GROSS AND MICRO LEVEL 4 Comments: [id number]
--- NOTE | 2025-04-28 08:16 | ROE_ITS ---
Operative Note Operative Note PRE-OP DIAGNOSIS: Thickened endometrium, postmenopausal bleeding PROCEDURE: Hysteroscopy, dilation curettage SURGEON: Syeda Devine ANESTHESIA TYPE: General LMA/ETT Refer to Anesthesia Record ESTIMATED BLOOD LOSS: 5 PATHOLOGY: other (1. Endocervical curettage 2. Endometrial curettage) Patient was transported to: same day Patient's condition: stable Indications: Thickened endometrium, postmenopausal bleeding Findings: Normal-appearing cervix, uterus. Smooth regular endometrium. Both tubal ostia visualized. Scant return of curettings for both endocervical and endometrial curettage Procedure Description: After full informed consent was obtained, patient was taken the operating suite where she is placed in dorsal supine position. She had general anesthesia administered via LMA. She had pneumatic compression stockings for DVT prophylaxis and no antibiotic prophylaxis was warranted. She was then placed in the modified dorsal lithotomy position in yellowfin stirrups and prepped and draped in the usual sterile fashion. A timeout was held. Speculum was inserted into the vaginal vault and a single-tooth tenaculum used to grasp the anterior lip of the cervix. The cervix appeared small and irregular. The cervical os was dilated point that a 4 mm hysteroscope could be passed without difficulty. With instillation of normal saline the endometrial cavity and endocervical cavity were visualized. Both tubal ostia were visualized. The endometrial lining was smooth and regular without evidence of fibroid or polyp. At this p oint, after digital pictures were taken, hysteroscope was removed. Fluid deficit was 45 cc of normal saline. At this point a fractional curettage was performed first of the endocervix, followed by the endometrium. Scant tissue return for both specimens. Patient was then returned to dorsal supine position and woke from anesthesia without difficulty. She was taken the same-day surgical area in stable condition. Complications: None apparent Fluids: 400 cc of crystalloid per anesthesia +45 cc deficit of normal saline at hysteroscope Pathology: 1. Endocervical curettage 2. Endometrial curettage Findings: As above, small, regular uterus without evidence of endocervical or endometrial thickening Date of Procedure: 04/28/25
[2025-04-28] MEDS: fentaNYL 100 MCG/2 ML VIAL IVP (08:30)
--- NOTE | 2025-04-28 10:53 | W.ANESPOSTOP ---
Postoperative Evaluation Date, Time and Location Date Performed: 04/28/25 Time Performed: 10:53 Patient Location: Day Surgery Unit Vital Signs Most Recent Imported Vital Signs: Most Recent Vital Signs Temp Pulse Resp BP Pulse Ox 36.2 C L 88 18 117/67 98 04/28/25 09:15 04/28/25 09:15 04/28/25 09:15 04/28/25 09:15 04/28/25 09:15 Pain Score Most Recent Pain Score: Most Recent Pain Score Pain Level 6 04/28/25 09:15 Assessment Mental Status: Awake (Alert & Oriented to Patient Baseline) Airway and Respiratory Function: Patent airway with normal (patient baseline) respiratory exam Cardiovascular Function: Hemodynamically Stable Hydration Status: Adequately Hydrated Nausea & Vomiting: No Nausea or Vomiting Pain: Pt. Denies Any Pain Peripheral Nerve Block: Patient did not receive a nerve block
== END 2025-04-28 09:50 | disposition home or self-care (01) ==
PROVIDERS: PCP Nurse Practitioner Family; Visit Provider Obstetrics & Gynecology
PROC: 0UDB8ZZ Extraction of Endometrium, Via Natural or Artificial Opening Endoscopic (ICD-10-PCS; CPT 58558; principal; 2025-04-28 07:30)
DX: N95.0 Postmenopausal bleeding (principal); R93.89 Abnormal findings on diagnostic imaging of other specified body structures; N85.9 Noninflammatory disorder of uterus, unspecified
CPT/HCPCS: 58558; 88305; J0131; J1100; J2003; J2405; J2704; J3010

== ENCOUNTER 2025-06-16 15:38 | Outpatient (REF) | payer MEDICAID, SELFPAY | END 2025-06-16 15:39 | disposition home or self-care (01) | LOC: LBN 15:38 | PROVIDERS: PCP Nurse Practitioner Family; Visit Provider Nurse Practitioner Family | DX: E78.5 Hyperlipidemia, unspecified (principal); R73.03 Prediabetes; Z12.11 Encounter for screening for malignant neoplasm of colon; J02.9 Acute pharyngitis, unspecified | CPT/HCPCS: 87081 ==

== ENCOUNTER 2025-07-15 08:16 | Outpatient (CLI) | payer MEDICAID, SELFPAY ==
[2025-07-15 15:31] LABS: TSH (W/Ref FT4) 0.89 uIU/mL (0.55-4.78)
[2025-07-15 15:32] LABS: Hemoglobin A1C 6.6 % (<5.7)
[2025-07-15 15:37] LABS: Anion Gap 10.7 mmol/L (3-11); BUN 16 mg/dL (9-23); CO2 26.3 mmol/L (20.0-31.0); Calcium 9.6 mg/dL (8.3-10.6); Chloride 105 mmol/L (98-107); Cholesterol 228 mg/dL (<200); Glucose 137 mg/dL (74-106); HDL Cholesterol 77 mg/dL (>or=50); Potassium 4.3 mmol/L (3.5-5.1); Sodium 142 mmol/L (136-145)
== END 2025-07-15 08:17 | disposition home or self-care (01) ==
LOC: LBO 08:16
PROVIDERS: PCP Nurse Practitioner Family; Visit Provider Nurse Practitioner Family
DX: R73.03 Prediabetes (principal); E78.5 Hyperlipidemia, unspecified
CPT/HCPCS: 36415; 80048; 80061; 83036; 84443